=== PATIENT | male | born 1960 | race Caucasian/White ===

== ENCOUNTER 2019-02-07 18:06 | Inpatient (IN) ==
[2019-02-07 18:51] LABS: BASO# 0.07 X1000 (0.0-0.2); BASO% 0.8 % (0.0-0.8); EOS# 0.19 X1000 (0.0-0.7); EOS% 2.2 % (0.0-10.0); HEMATOCRIT 46.7 % (42.0-52.0); HEMOGLOBIN 15.2 g/dL (14.0-18.0); IMM GRAN# 0.02 X1000 (0.0-0.04); IMM GRAN% 0.2 % (0.0-0.5); LYMPH# 2.44 X1000 (1.2-3.4); LYMPH% 28.6 % (20.5-51.1); MCH 27.8 PG (27-31); MCHC 32.5 g/dL (33-37); MCV 85.5 FL (81-99); MONO# 0.82 X1000 (0.11-0.59); MONO% 9.6 % (1.7-9.3); MPV 9.4 FL (7.4-10.4); NEUT# 4.99 X1000 (1.4-6.5); NEUT% 58.6 % (42.2-75.2); PLT 248 X1000 (130-400); RBC 5.46 XMIL (4.7-6.1); RDW 15.7 % (11.5-14.5); WBC 8.53 X1000 (4.8-10.8)
--- NOTE | 2019-02-07 18:53 | Diag Imaging Result Doc PS360 ---
EXAM: CHEST-2 VIEWS INDICATION: SOB TECHNIQUE: 2 views COMPARISON: 06/28/2018 FINDINGS: There is a dense airspace consolidation at the right lung base indicating pneumonia. It appears to be mainly in the right middle lobe. The left lung is clear. There is suggestion of a small right pleural effusion. There is stable cardiomegaly. IMPRESSION: Dense airspace consolidation at the right lung base suggesting pneumonia. Electronically signed by Wesley Burgos 02/07/2019 6:50 PM
[2019-02-07 18:55] LABS: INR 1.45; PROTIME 17.9 Seconds (11.0-16.0)
[2019-02-07 18:56] LABS: PTT 33.1 Seconds (22.3-41.8)
[2019-02-07 19:08] LABS: AGAP 14; ALB/GLOB RATIO 1.4; ALBUMIN 3.8 g/dL (3.5-5.0); ALKALINE PHOSPHATASE 100 U/L (32-122); BUN 28 mg/dL (8-22); CALCIUM 8.4 mg/dL (8.8-10.2); CHLORIDE 100 mmol/L (98-107); COSMO 278; CREATININE 1.1 mg/dL (0.7-1.2); ESTIMATED GFR > 60; GLUCOSE 107 mg/dL (70-104); GOT 123 U/L (10-34); GPT 73 U/L (10-44); POTASSIUM 4.5 mmol/L (3.5-5.1); SODIUM 136 mmol/L (136-145); TCO2 22 mmol/L (25-35); TOTAL BILIRUBIN 1.91 mg/dL (0.20-1.00); TOTAL PROTEIN 6.5 g/dL (6.3-8.3)
[2019-02-07] MEDS ORDERED: ZITHROMAX 500 MG/NS 500 MG/250 ML IVPB IV ONE ×2 (19:57→20:21)
[2019-02-07] MEDS ORDERED: ZITHROMAX PO ONE (20:12)
--- NOTE | 2019-02-07 20:39 | PROVIDER DOCUMENTATION ---
This chart was entered by Lucrecia Burgos Scribe, acting as scribe for Risa Lee CRNP. HPI-Respiratory General - General Chief Complaint: Shortness of Breath Stated Complaint: CHF Time Seen by Provider: 02/07/19 18:15 Source: patient Allergies/Adverse Reactions: Patient Allergies Allergy/AdvReac Type Severity Reaction Status Date / Time No Known Allergies Allergy Verified 02/07/19 19:12 Home Medications: Home Medication List Medication Instructions Recorded Confirmed Last Taken Type Furosemide [Lasix] 40 mg PO BID #60 tab 10/07/17 02/07/19 Unknown Rx - History of Present Illness-Resp Nature of Presenting Problem: 58 yom presents to er w/cc sob x over 1 wk and getting worse. pt is having episodes of PND. pt sts SOB started due to a lac on left great toe and unable to afford to get peroxide for it. pt has bilat LE swelling that has become worse. pt denies cp, nvd, and fever. Onset/Duration: reports: other (over 1 wk ago) Timing: reports: still present Context: reports: other (lac on left great toe, unable to get peroxide for it) Cough Quality/Degree: reports: no cough Associated Symptoms: reports: shortness of breath, other (pnd and lac to left great toe). denies: chest pain/soreness Review of Systems - Adult - REVIEW OF SYSTEMS - ADULT Constitutional: reports: no symptoms reported. denies: fever, fatique Eyes: reports: no symptoms reported Ears, Nose, Mouth & Throat: reports: no symptoms reported Cardiovascular: reports: see HPI, PND. denies: chest pain, edema, palpitations Respiratory: reports: see HPI, shortness of breath. denies: cough, pleurisy, wheezing Gastrointestinal: reports: no symptoms reported. denies: diarrhea, nausea, vomiting Genitourinary: reports: no symptoms reported Musculoskeletal: reports: no symptoms reported Integumentary: reports: no symptoms reported Neurological: reports: no symptoms reported Psychiatric: reports: no symptoms reported Endocrine: reports: no symptoms reported Hematologic/Lymphatic: reports: no symptoms reported Allergic/Immunologic: reports: no symptoms reported All Other Systems: Reviewed and Negative Past History - Adult - PAST MEDICAL HISTORY-ADULT Review of Records: reports: Nursing Assessment Review, Medications Reviewed, Social history reviewed & non-contributory. Major Childhood Illnesses: reports: denies history Cardiovascular: reports: A-Fib, CHF, HTN Respiratory: reports: denies history Gastrointestinal: reports: denies history Obstetrical/Gynecological: reports: denies history Genitourinary: reports: denies history Musculoskeletal: reports: denies history Neurological: reports: denies history Endocrine/Immune: reports: denies history Other Conditions: reports: denies history - PRIOR SURGERIES/PROCEDURES Surgical/Procedure History: reports: none - IMMUNIZATION STATUS Childhood Immunizations: See Nurse Assessment Flu Vaccine: See Nurse Assessment - FAMILY HISTORY Family History: reviewed, not pertinent - SOCIAL HISTORY Smoking: other (former smoker) Substance Use: marijuana Physical Exam-General - PHYSICAL EXAM-ADULT Initial Vital Signs Reviewed: Yes - CONSTITUTIONAL General Appearance: alert, no apparent distress. negative: lethargic, slow to respond, obtunded - EYES Eyes: PERRL/EOMI, pink conjunctivae - HEAD, EARS, NOSE, MOUTH & THROAT HENMT: normocephalic/atraumatic, moist mucous membranes, normal ENT inspection - NECK Neck: non-tender, full range of motion, supple, normal inspection - RESPIRATORY Respiratory: chest non-tender, lungs clear, normal breath sounds, no pleuratic chest pain, no respiratory distress, no accessory muscle use. negative: accessory muscle use, crackles, rales, rhonchi, wheezing - CARDIOVASCULAR Cardiovascular: normal peripheral pulses, regular rate, rhythm - CHEST (BREASTS) Chest/Breast: other (pt has healing bruise on left chest). negative: nipple discharge, tenderness, mass/lump noted - GASTROINTESTINAL (ABDOMEN) Abdominal Exam: normal bowel sounds, non tender, soft - LYMPHATIC Lymphatic: no adenopathy - MUSCULOSKELETAL Back Exam: normal inspection, no CVA tenderness, no vertebral tenderness Extremity: normal range of motion, non-tender, no calf tenderness, normal capillary refill, pelvis stable, erythema (bilat LE), other (+1 edema bilat LE). negative: normal inspection, deformity, pulse deficit Peripheral Pulses: radial (R): 2+, radial (L): 2+ - SKIN Integumentary: normal color, normal turgor, warm/dry, laceration(s) (healing lac bottom of left great toe w/no purulent drainage). negative: abrasion(s), ecchymosis, rash - NEUROLOGIC Neurologic: grossly normal, no motor/sensory deficits - PSYCHIATRIC Psych/Mental Status: normal mood/affect, normal thought content, normal thought process, oriented x 3 Progress - PLAN OF CARE/RESULTS Progress/Plan/Lab Results: Vital Signs - 8 hr 02/07/19 18:09 02/07/19 20:21 Temperature 97.9 F Pulse Rate 82 85 Respiratory Rate 18 20 Blood Pressure 157/63 148/91 O2 Sat by Pulse Oximetry 95 98 Laboratory Results - last 24 hr 02/07/19 02/07/19 02/07/19 18:27 18:27 18:27 WBC 8.53 RBC 5.46 Hgb 15.2 Hct 46.7 MCV 85.5 MCH 27.8 MCHC 32.5 L RDW Std Deviation 15.7 H Plt Count 248 MPV 9.4 Immature Gran % (Auto) 0.2 Neut % (Auto) 58.6 Lymph % (Auto) 28.6 [place] % (Auto) 9.6 H Eos % (Auto) 2.2 Baso % (Auto) 0.8 Immature Gran # (Auto) 0.02 Neut # (Auto) 4.99 Lymph # (Auto) 2.44 [place] # (Auto) 0.82 H Eos # (Auto) 0.19 Baso # (Auto) 0.07 PT INR PTT (Actin FS) Sodium 136 Potassium 4.5 Chloride 100 Carbon Dioxide 22 L Anion Gap 14 BUN 28 H Creatinine 1.1 Estimated GFR/1.73 m2 > 60 BUN/Creatinine Ratio 25 Glucose 107 H Calculated Osmolality 278 Calcium 8.4 L Total Bilirubin 1.91 H AST 123 H ALT 73 H Alkaline Phosphatase 100 Troponin T [id number] Pept 1505 H Total Protein 6.5 Albumin 3.8 Globulin 2.7 Albumin/Globulin Ratio 1.4 02/07/19 02/07/19 18:27 18:27 WBC RBC Hgb Hct MCV MCH MCHC RDW Std Deviation Plt Count MPV Immature Gran % (Auto) Neut % (Auto) Lymph % (Auto) [place] % (Auto) Eos % (Auto) Baso % (Auto) Immature Gran # (Auto) Neut # (Auto) Lymph # (Auto) [place] # (Auto) Eos # (Auto) Baso # (Auto) PT 17.9 H INR 1.45 PTT (Actin FS) 33.1 Sodium Potassium Chloride Carbon Dioxide Anion Gap BUN Creatinine Estimated GFR/1.73 m2 BUN/Creatinine Ratio Glucose Calculated Osmolality Calcium Total Bilirubin AST ALT Alkaline Phosphatase Troponin T 0.021 Yzo-[id number] Pept Total Protein Albumin Globulin Albumin/Globulin Ratio Orders Category Date Time Status cxr [CHEST-2 VIEWS] [RAD] Stat Exams 02/07/19 18:16 Completed CBC WITH DIFF [HEME] Stat Lab 02/07/19 18:27 Completed COMPREHENSIVE METABOLIC PANEL [CHEM] Stat Lab 02/07/19 18:27 Completed PRO B-NATRIURETIC PEPTIDE Stat Lab 02/07/19 18:27 Completed PROTIME WITH INR [COAG] Stat Lab 02/07/19 18:27 Completed PTT [COAG] Stat Lab 02/07/19 18:27 Completed TROPONIN T Stat Lab 02/07/19 18:27 Completed TROPONIN T Stat Lab 02/07/19 20:30 Received Azithromycin 500 mg/Ns [Zithromax 500 mg/Ns] Med 02/07/19 19:57 Discontinued 500 mg in 250 ml IV NOW Azithromycin 500 mg/Ns [Zithromax 500 mg/Ns] Med 02/07/19 20:21 Active 500 mg in 250 ml IV NOW Azithromycin [Zithromax] Med 02/07/19 20:12 Discontinued 500 mg PO NOW ONE EKG [EKG] Stat Ther 02/07/19 18:16 Ordered EKG [EKG] Stat Ther 02/07/19 19:57 Ordered Result Diagrams: 02/07/19 18:27 02/07/19 18:27 - EKG 1 Time of EKG reading by physician:: 18:21 EKG Read and Signed by:: Sukhdeep Jones EKG Interpretation (*Must complete 3 of following elements*): Abnormal Rate: 84 (nonspecific intraventricular block ) Rhythm: Afib [place]: normal QRS: normal ST Wave: normal Prior EKG Comparison: unchanged from prior (uncahnged from 06-03-18) Comments: lateral infarct, age undetermined - XRAY 1 XRAY Study: Chest Impression: See EMR Report (EXAM: CHEST-2 VIEWS INDICATION: SOB TECHNIQUE: 2 views COMPARISON: 06/28/2018 FINDINGS: There is a dense airspace consolidation at the right lung base indicating pneumonia. It appears to be mainly in the right middle lobe. The left lung is clear. There is suggestion of a small right pleural effusion. There is stable cardiomegaly. IMPRESSION: Dense airspace consolidation at the right lung base suggesting pneumonia. Electronically signed by Wesley Burgos 02/07/2019 6:50 PM 02/07/190 Interpreting Physician: Wesley Burgos MD Dictated Date/Time: 02/07/191847 cc: Risa Lee; None,PCP) - CONSULTS/PCP/HOSPITALIST Notification #1 *Consult/PCP/Hospitalist*: DR. TOVAR Time Discussed: 20:38 Consult Disposition: Admit Departure - Departure Date of Disposition Decision: 02/07/19 Time of Disposition Decision: 20:38 DIAGNOSIS: Pneumonia Disposition: ADMITTED INPATIENT 09 Certified Medical Emergency: Emergent Condition: Stable Referrals and Follow-Ups: None,PCP [Primary Care Provider] - - Critical Care Note This patient required my direct & personal management of CC.: No Attestation - Physician/ JOHN Attestation Patient care was provided by Advanced Practice Provider:: Yes Advanced Practice Provider:: Risa Lee Advanced Practice Provider documentation review:: The Mid-level provider documentation, treatment plan and medical decision making was reviewed by the physician who agrees with all treatment and medical decision making by the MLP. The physician spent face to face time with patient:: No Advanced Practice Provider documentation review:: Supervising physician onsite and consulted in the evaluation and care of this patient. The physician did not have a face to face encounter with the patient. This chart was documented by the indicated scribe, (Lucrecia Burgos Scribe) and accurately reflects the services I performed and decisions made by me, Risa Lee CRNP, as attested by the provider's signature.
--- NOTE | 2019-02-07 20:49 | EKG Report ---
Test Performed on : 02/07/2019 6:21:53 PM Test Reason : SOB Blood Pressure : / mmHG Vent. Rate : 084 BPM Atrial Rate : 092 BPM P-R Int : 000 ms QRS Dur : 168 ms QT Int : 412 ms P-R-T Axes : 000 258 069 degrees QTc Int : 486 ms Suspect arm lead reversal, interpretation assumes no reversal Atrial fibrillation. Nonspecific intraventricular block Lateral infarct , age undetermined Abnormal ECG When compared with ECG of 28-JUN-2018 15:04, Nonspecific intraventricular block has replaced Left bundle branch block Lateral infarct is now present Unconfirmed Result
--- NOTE | 2019-02-07 20:49 | EKG Report ---
Test Performed on : 02/07/2019 8:05:03 PM Test Reason : CP Blood Pressure : / mmHG Vent. Rate : 074 BPM Atrial Rate : 174 BPM P-R Int : 000 ms QRS Dur : 172 ms QT Int : 432 ms P-R-T Axes : 000 234 069 degrees QTc Int : 479 ms Suspect arm lead reversal, interpretation assumes no reversal Atrial fibrillation. Nonspecific intraventricular block Lateral infarct (cited on or before 07-FEB-2019) Abnormal ECG When compared with ECG of 07-FEB-2019 18:21, (Unconfirmed) No significant change was found Unconfirmed Result
[2019-02-07] MEDS ORDERED: LASIX IV ONE (21:24)
[2019-02-07] MEDS ORDERED: TYLENOL PO PRN (21:41)
[2019-02-07] MEDS ORDERED: AUGMENTIN PO SCH (21:41)
[2019-02-07] MEDS ORDERED: LOVENOX SUBQ SCH (22:00)
--- NOTE | 2019-02-07 22:05 | HISTORY AND PHYSICAL ---
PRIMARY CARE PHYSICIAN: None. REASON FOR ADMISSION: A one-week history of worsening shortness of breath, two-day history of chest pain, worsening cough. HISTORY OF PRESENT ILLNESS: Mr. Fady Ames is a 58-year-old man with past medical history of chronic systolic heart failure secondary to dilated cardiomyopathy, atrial fibrillation, hypertension, morbid obesity. He reports that since April of this year, he has not seen any primary care physician and essentially has fallen through the cracks. The only medication he takes periodically is Lasix 40 mg, which is an old prescription. He reports for the last one week, he has been having progressive shortness of breath with PND, orthopnea. He reports that he engaged in some heavy duty exertion, i.e., unloading scrap from his pickup truck two days ago, and since then, his dyspnea has worsened. He admits to having a cough productive of yellowish sputum, but no fever or chills. Denies any lower extremity swelling of note, but does state that he has been having easy satiety for the last one week and bloating. Over the last couple of days, he has had transient chest pain in the precordial area with some palpitations, but these have not occurred over the last 24 hours. He does admit to having chronic lower extremity redness, but this has not progressed. No increased pain in his lower extremities. REVIEW OF SYSTEMS: Notable for constipation. No other GI or complaints. No focal neurological complaints. No lightheadedness or presyncopal spells. No new-onset rash. Does state that the redness in his legs started today, noticed on the left leg and slowly ascending to his knee. ALLERGIES: No known allergies. MEDICATIONS: Lasix 40 mg b.i.d. SURGICAL HISTORY: None. SOCIAL HISTORY: Lives alone. Does not smoke, drink, or use drugs. FAMILY HISTORY: Negative for any heart disease or diabetes. LABORATORY AND DIAGNOSTIC DATA: Notable for a chest film showing right lower lobe infiltrate. White count 8000, hemoglobin and hematocrit 15 and 46, platelets 248,000. BUN is 18, creatinine 1.1, glucose 107, calcium 8.4. Total bilirubin is 1.9, AST 123, ALT 73. Troponin is essentially negative, 0.021 and 0.022. ProBNP was 1500. PTT 18, INR 1.4. EKG showed irregular, atrial fibrillation, with what appears to be paced rhythm versus left bundle-branch block, left axis deviation, and Q-waves in the anterior leads. PHYSICAL EXAMINATION: VITAL SIGNS: Blood pressure 157/60, heart rate 82, respirations 18, temperature is 97.9 degrees. He is 95% on room air. GENERAL: He is an obese, middle-aged, man, not in acute distress. AAO x3, with normal mood and affect. HEAD: Normocephalic and atraumatic. EYES: PERRL, EOMI. He is anicteric and not pale. ENT: Grossly normal. No central cyanosis. NECK: Supple with possible JVD and positive hepatojugular reflux. No bruit. No thyromegaly. CHEST: Decreased entry in the bases. A few scattered wheezes. CARDIOVASCULAR: First and second sounds heard. No gallops, murmurs, rubs. Rhythm is irregular. ABDOMEN: Protuberant, soft, nontender. No organomegaly. Bowel sounds are normal. EXTREMITIES: Patient has lower extremity erythema, but on the left leg, the erythema extends all the way to the medial aspect just below the knee. On the right lower extremity, mid hernandez appears to be slightly warm. No induration. No fluctuance. Distal pulses are full, symmetrical, and irregular. No clubbing or peripheral cyanosis. NEUROLOGIC: No focal deficits. SKIN: See above. Grossly unremarkable. MUSCULOSKELETAL: Grossly normal. ASSESSMENT: 1. Right lower lobe pneumonia. 2. Mild acute on chronic systolic heart failure. 3. Hypertensive heart disease. 4. Chronic atrial fibrillation. PLAN: We will get the patient treated for pneumonia, i.e., community-acquired, and a possibility of aspiration pneumonia. More importantly, this patient has fallen through the cracks, and will need to establish a primary care provider and asset manager prior to discharge. We will resume Lasix. Start patient on beta blockers and JONATHAN inhibitors. Consult Cardiology to see patient. Repeat chest film in two days to document improvement in radiographic picture from a cardiac standpoint. I expect pneumonia findings to probably be worse as this tends to lag behind the chest film. We will defer to primary team and Cardiology regarding further treatment to include Eliquis or not, which if patient qualifies for. The patient also has evidence of some degree of mild cellulitis and antibiotics, i.e., doxycycline and Augmentin which I prescribed for pneumonia, should be able to cover this, too. cc: Terrie Villarreal MD
[2019-02-07] MEDS: LASIX PO SCH (22:35)
[2019-02-07] MEDS: COREG PO SCH (22:36)
[2019-02-07] MEDS: DOXYCYCLINE 100 MG in NS 250 ML IV SCH (23:00)
[2019-02-08 05:40] LABS: ALLEN TEST YES; BE -0.2 mmoll (-3.0-3.0); BLOOD TYPE ARTERIAL; HCO3-(ACT) 24.6 mmoll (20.0-26.0); METHB 0.5 % (0.0-1.5); O2(CT) 20.8 mL/dL (15.0-23.0); O2HB 93.6 % (95.0-99.0); PCO2(98.6) 41 mmHg (35-45); PO2(98.6) 73 mmHg (60-100); SAMPLE BLOOD; SAO2 96.3 % (95.0-100.0); THB 15.8 g/dL (11.5-17.4); pH(98.6) 7.39 (7.35-7.45)
[2019-02-08 05:41] LABS: MODALITY ROOM AIR
[2019-02-08] MEDS: DUONEB (A & A) INH SCH ×4 (05:41→22:55)
[2019-02-08 06:42] LABS: BASO# 0.06 X1000 (0.0-0.2); BASO% 0.8 % (0.0-0.8); EOS# 0.14 X1000 (0.0-0.7); EOS% 1.8 % (0.0-10.0); HEMATOCRIT 48.3 % (42.0-52.0); HEMOGLOBIN 15.4 g/dL (14.0-18.0); IMM GRAN# 0.02 X1000 (0.0-0.04); IMM GRAN% 0.3 % (0.0-0.5); LYMPH# 2.08 X1000 (1.2-3.4); MCH 27.6 PG (27-31); MCHC 31.9 g/dL (33-37); MCV 86.6 FL (81-99); MONO# 0.67 X1000 (0.11-0.59); MONO% 8.4 % (1.7-9.3); MPV 9.4 FL (7.4-10.4); NEUT# 5.03 X1000 (1.4-6.5); NEUT% 62.7 % (42.2-75.2); PLT 248 X1000 (130-400); RBC 5.58 XMIL (4.7-6.1); RDW 15.9 % (11.5-14.5)
[2019-02-08 06:51] LABS: UR AMPHETAMINES QUAL NONE DETECTED (NONE DETECT); UR BARBITUATES QUAL NONE DETECTED (NONE DETECT); UR BENZODIAZEPIN QUAL NONE DETECTED (NONE DETECT); UR CANNABINOIDS QUAL PRESUMPTIVE POSITIVE (NONE DETECT); UR COCAINE QUAL NONE DETECTED (NONE DETECT); UR METHADONE QUAL NONE DETECTED (NONE DETECT); UR OPIATES QUAL NONE DETECTED (NONE DETECT); UR OXYCODONE QUAL NONE DETECTED (NONE DETECT); UR PCP QUAL NONE DETECTED (NONE DETECT)
[2019-02-08 07:10] LABS: CALCIUM 8.6 mg/dL (8.8-10.2); CREATININE 1.3 mg/dL (0.7-1.2); POTASSIUM 4.7 mmol/L (3.5-5.1)
[2019-02-08] MEDS ORDERED: PRINIVIL PO SCH (09:00)
[2019-02-08] MEDS: DOXYCYCLINE 100 MG in NS 250 ML IV SCH ×2 (09:39→22:00)
[2019-02-08] MEDS: LASIX PO SCH (09:43)
[2019-02-08] MEDS: COREG PO SCH ×2 (09:43→21:00)
[2019-02-08] MEDS: MAXIPIME 2 GM in NS 100 ML IV SCH ×3 (11:07→23:29)
--- NOTE | 2019-02-08 19:46 | CARDIOLOGY CONSULTATION ---
DATE: 02/08/2019 CHIEF COMPLAINT ON PRESENTATION: Shortness of breath. HISTORY OF PRESENT ILLNESS: Mr. Ames is a 58-year-old male with a history of a nonischemic cardiomyopathy. He presented for evaluation of shortness of breath. The patient apparently for 1 to 2 weeks has been extremely short of breath. Yesterday, he said he felt like he was "going to ." He was unable to really clarify what that meant. It did not seem like he had any overt pain complaints, as he did not complain of this, but had some rare coughing episodes. He is not aware of any fevers or chills. He had significant exertional shortness of breath. He has not been compliant with his medications, although he continues to smoke marijuana. PAST MEDICAL HISTORY: Significant for: 1. A nonischemic cardiomyopathy with previous cardiac catheterization on May 25 that showed normal coronaries. 2. Hypertension. SOCIAL HISTORY: He lives alone. He uses marijuana, per his UDS. He denies any tobacco use or alcohol. FAMILY HISTORY: Significant for hypertension. REVIEW OF SYSTEMS: A 10 system review of systems is negative except for those things mentioned in the HPI. PHYSICAL EXAMINATION: He is afebrile, his heart rate is 78, his blood pressure is 151/102, his blood pressure on presentation was 157/63. His intakes and outputs are limited. Generally, he is in no acute distress.HEENT: Oropharynx is moist. Poor dentition. Eye examination shows pink conjunctivae, white sclerae. Neck examination shows no obvious thyromegaly or thyroid tenderness. Cardiovascularly, he sounds to be in a regular rate and rhythm. He has no obvious murmurs. He has no S3. He has no lower extremity edema. His chest exam has reduced breath sounds with mild rales in the right lower base. Otherwise, no increased work of breathing. No other abnormalities. His abdomen is protuberant, somewhat firm, nontender. Bowel sounds are intact. His extremities are warm, well perfused. He has trace bilateral lower extremity edema. Skin: He has some thickening of the scan in his bilateral lower extremities. He has some lacerations on both feet. Neurologic: He is moving all extremities well. He has no lateralizing deficits. PERTINENT DATA: He has dense consolidation in the right lung base, suggesting pneumonia. His EKG on presentation shows what appears to be atrial fibrillation with a nonspecific intraventricular conduction delay. His subsequent EKG on the that shows again what appears to be atrial fibrillation with a nonspecific intraventricular conduction delay. His previous EKG in June demonstrated atrial fibrillation with what appeared at that time to be a left bundle branch block. May 2018 he appeared to be in atrial fibrillation as well with a left bundle branch block, and again in September 2017 he appeared to be in atrial fibrillation. Lab data: White count 8, hematocrit 48, platelet count 248,000. His sodium is 143, potassium 4.7, his BUN is 28, creatinine 1.3 which is up from 1.1 yesterday. His proBNP yesterday was 1505. TSH 6.73, it was noted to be 6.65 in May. His cardiac enzymes are negative. His UDS was positive for marijuana. He had hepatitis C testing demonstrating positive serologies in September. He had a reactive hepatitis C antibody with nonreactive hepatitis B titers and hepatitis A titers. ASSESSMENT: Mr. Ames is a 58-year-old gentleman, who presents with shortness of breath and found to have a pneumonia. PLAN: He appears to be in permanent atrial fibrillation by history as well as by EKG today. We will place him on treatment dose of Lovenox. He is on antibiotics. I have changed his Lasix over to once daily. He may be a little bit dry, based on his arise in his BUN and creatinine. I believe he is perfusing. I have reduced his Coreg down to 3.125 b.i.d. and switched him over to losartan. I have impressed to him the importance of taking his medications and the fact that adherence to his medications if his heart function does not improve he may be a candidate for a CARDIOLOGY SPECIALIST device, which could have a significant impact in improving his heart function. We will continue to follow along with the patient. cc: Lowell Amaya MD
[2019-02-08] MEDS ORDERED: TYLENOL PO PRN (19:56)
[2019-02-08] MEDS ORDERED: ZOFRAN IV PRN (19:57)
[2019-02-08] MEDS: LOVENOX SUBQ SCH (21:00)
--- NOTE | 2019-02-08 22:03 | PROGRESS NOTE ---
DATE: 02/08/2019 SUBJECTIVE: The patient is sitting at the edge of the bed. He states that he does not feel very good at this time. He does complain of intermittent shortness of breath. He reports that he ran out of his medications six months ago. OBJECTIVE: Vital Signs: Temperature 97.5 degrees, blood pressure 122/98, heart rate 62, respirations 16, O2 saturation 100% on room air. General: This is a morbidly obese male, sitting at the edge of the bed in no acute distress. Heart: S1, S2 normal. Regular rate and rhythm. Lungs: Coarse breath sounds bilaterally. Abdomen: Positive bowel sounds. Soft, obese, nontender, nondistended. Extremities: Edema 1+ bilaterally. Neurologic: The patient is alert and oriented x3. LABORATORY DATA: Hemoglobin 15, hematocrit 48. Sodium 143, potassium 4.7, chloride 102, CO2 of 28, BUN 28, creatinine 1.3, glucose 81. TSH 6.73. ASSESSMENT AND PLAN: 1. Acute on chronic systolic congestive heart failure exacerbation. Continue on the current cardiac medications as ordered by the burnisher. 2. Pneumonia. Continue on broad-spectrum antibiotics as well as bronchodilator therapy. 3. Hepatitis C. Aware. The patient reports that he has never been treated for this. 4. Morbid obesity. Aware. 5. Hypothyroidism. We will start the patient on Synthroid. 6. Hypertension. Continue on the current antihypertensive regimen. 7. Dilated cardiomyopathy. Aware. 8.Atrial fibrillation. Management as per cardiology. 9. Deep vein thrombosis prophylaxis. The patient is currently on full-dose Lovenox. cc: Floridalma Campbell MD [facility]
[2019-02-08] MEDS ORDERED: NS 500 ML ONE (23:36)
[2019-02-09] MEDS: DUONEB (A & A) INH SCH ×4 (03:36→23:15)
[2019-02-09] MEDS: SYNTHROID PO SCH (06:08)
[2019-02-09 06:47] LABS: BASO# 0.04 X1000 (0.0-0.2); BASO% 0.6 % (0.0-0.8); EOS# 0.23 X1000 (0.0-0.7); EOS% 3.4 % (0.0-10.0); HEMOGLOBIN 14.8 g/dL (14.0-18.0); LYMPH# 2.13 X1000 (1.2-3.4); LYMPH% 31.2 % (20.5-51.1); MCH 27.1 PG (27-31); MCHC 31.5 g/dL (33-37); MCV 86.1 FL (81-99); MONO# 0.58 X1000 (0.11-0.59); MONO% 8.5 % (1.7-9.3); MPV 9.7 FL (7.4-10.4); NEUT# 3.85 X1000 (1.4-6.5); NEUT% 56.3 % (42.2-75.2); PLT 233 X1000 (130-400); RBC 5.46 XMIL (4.7-6.1); RDW 15.7 % (11.5-14.5); WBC 6.83 X1000 (4.8-10.8)
[2019-02-09 06:52] LABS: HEMOGLOBIN A1C 5.9 % (4.8-6.0)
[2019-02-09 07:17] LABS: CALCIUM 8.5 mg/dL (8.8-10.2); CREATININE 1.3 mg/dL (0.7-1.2); POTASSIUM 4.5 mmol/L (3.5-5.1)
[2019-02-09 07:29] LABS: ALB/GLOB RATIO 1.5; ALBUMIN 3.7 g/dL (3.5-5.0); MAGNESIUM 1.8 mg/dL (1.5-2.7); TOTAL BILIRUBIN 2.18 mg/dL (0.20-1.00); TOTAL PROTEIN 6.2 g/dL (6.3-8.3)
--- NOTE | 2019-02-09 08:31 | ECHO REPORT ---
ORDER DATE: 02/08/2019 INTERPRETING PHYSICIAN: Odilon Posadas MD. REQUESTING PHYSICIAN: Hospitalist service. INDICATIONS: Chest pain, atrial fibrillation, and hypertension. M-MODE MEASUREMENTS: Left ventricle end diastole: 6.5 cm. Left ventricle end systole: 5.6 cm. Posterior wall: 1.4 cm. Interventricular septum: 1.4 cm. Left atrium: 5.8 cm. Aortic diameter: 3.2 cm. SUMMARY OF 2-DIMENSIONAL IMAGING: The study is very difficult and the distillation operator added Optison hoping that it would improve the visualization of the chambers. 1. Left ventricular chamber is markedly dilated. It shows severely impaired systolic function with ejection fraction of 15% to 20% at best. There is mild degree of concentric left ventricular hypertrophy. There is a small pericardial effusion, concentric, without tamponade. All of the chambers are dilated. This is a dilated cardiomyopathy. 2. Tricuspid valve shows moderately severe degree of regurgitation. The inferior vena cava is dilated. 3. The pulmonary systolic pressure is estimated at 54 mmHg. The pulmonic valve is unremarkable. 4. The aortic valve looks grossly normal. Color flow mapping unremarkable. 5. Mitral valve shows a mild degree of regurgitation. 6. Pulsed wave Doppler of mitral inflow shows what appears to be a single filling wave. The patient is probably in atrial fibrillation. 7. There is no mass and no thrombus. 8. The inferior vena cava is dilated with minimal respiratory evaluation. SUMMARY: This study shows four chamber dilatation, especially the atria and the left ventricle. There is severely impaired systolic function with ejection fraction of 15% to 20%. There is a small concentric pericardial effusion without tamponade. There is pulmonary hypertension. Diastolic dysfunction is probably very likely. Clinical correlation is recommended. cc: MD Lowell Springer MD
[2019-02-09] MEDS ORDERED: LASIX PO SCH (09:00)
[2019-02-09] MEDS: DOXYCYCLINE 100 MG in NS 250 ML IV SCH ×2 (09:16→22:30)
[2019-02-09] MEDS: COREG PO SCH ×2 (09:16→22:30)
[2019-02-09] MEDS: LOVENOX SUBQ SCH ×2 (09:16→22:29)
[2019-02-09] MEDS: COZAAR PO SCH (09:18)
[2019-02-09] MEDS: MAXIPIME 2 GM in NS 100 ML IV SCH (12:10)
[2019-02-09] MEDS ORDERED: LASIX IV ONE (15:15)
--- NOTE | 2019-02-09 15:18 | PROGRESS NOTE ---
DATE: 02/09/2019 SUBJECTIVE: The patient states that he feels a lot better today. He states that he slept well last night. OBJECTIVE: Vital Signs: Temperature 98.4 degrees, blood pressure 110/89, heart rate 95, respirations 18, O2 saturation is 100% on room air. General: This is a morbidly obese male lying in bed, in no acute distress. Heart: S1, S2 normal. Lungs: Equal air entry bilaterally. No wheezing. No rales. Abdomen: Positive bowel sounds. Soft, obese. Extremities: No edema. The patient does have an ulceration at the base of his left great toe. There is no discharge coming from it at this time. Neurologic: The patient is alert and oriented x4. Labs: Hemoglobin 14, hematocrit 47, platelets 233,000. Sodium 135, potassium 4.5, chloride 98, CO2 of 26, BUN 29, creatinine 1.3, glucose 123. Total bilirubin 2.1, AST 109, ALT 68, alkaline phosphatase 85. ASSESSMENT AND PLAN: 1. Acute on chronic systolic congestive heart failure exacerbation. Continue on the current treatment regimen as directed by the yarn man. 2. Pneumonia. Continue with antibiotic therapy and bronchodilator therapy. 3. Hepatitis C. Aware. The patient will be referred to gastroenterology as outpatient to discuss treatment. 4. Morbid obesity. Aware. 5. Hypothyroidism. Continue on Synthroid. 6. Dilated cardiomyopathy. Aware. 7. Hypertension. Continue on the current antihypertensive regimen. 8. Deep vein thrombosis prophylaxis. The patient is on full-dose Lovenox. 9. Atrial fibrillation. Continue with the current regimen as directed by the yarn man. cc: Floridalma Campbell MD
--- NOTE | 2019-02-09 20:06 | CARDIOLOGY PROGRESS NOTE ---
DATE: 02/09/2019 SUBJECTIVE: Mr. Ames reports his breathing is doing okay. He continues to have some trouble with edema. PHYSICAL EXAMINATION: Vital signs: He is afebrile, heart rate 95, blood pressure 110/89. Inputs and outputs are somewhat difficult to track. He has limited data. It seems relatively flat though. All voids appear to be measured. General: He is in no acute distress. Cardiovascular: He sounds to be in an irregularly irregular rhythm, which is consistent with his chronic atrial fibrillation. He has 1+ bilateral lower extremity edema. His JVP does appear to be elevated. Chest: Reduced breath sounds on the right base with mild rales. He has no increased work of breathing. Abdomen: Soft, nontender. PERTINENT DATA: His sodium is 135, potassium 4.5, BUN 29, creatinine is 1.3. His proBNP is 1105. His white count is 6.8. ASSESSMENT: Mr. Ames is a 58-year-old gentleman who presented with a right-sided pneumonia. He appears to be in mild heart failure. PLAN: Patient was re-initiated on a beta-alon and angiotensin receptor alon. I will give him a dose of intravenous Lasix today and change him to his home dose of 80 mg of Lasix. He reports he was taking 80 mg once a day at home. We will recheck laboratories in the morning. cc: Lowell Amaya MD
[2019-02-10] MEDS: MAXIPIME 2 GM in NS 100 ML IV SCH ×2 (01:23→12:36)
[2019-02-10] MEDS: DUONEB (A & A) INH SCH ×4 (04:55→22:18)
[2019-02-10] MEDS: SYNTHROID PO SCH (06:17)
[2019-02-10 07:24] LABS: BASO# 0.06 X1000 (0.0-0.2); BASO% 0.8 % (0.0-0.8); EOS# 0.28 X1000 (0.0-0.7); EOS% 3.9 % (0.0-10.0); HEMATOCRIT 46.4 % (42.0-52.0); HEMOGLOBIN 14.6 g/dL (14.0-18.0); LYMPH# 2.07 X1000 (1.2-3.4); MCH 27.3 PG (27-31); MCHC 31.5 g/dL (33-37); MCV 86.7 FL (81-99); MONO# 0.65 X1000 (0.11-0.59); MONO% 9.1 % (1.7-9.3); MPV 9.5 FL (7.4-10.4); NEUT# 4.09 X1000 (1.4-6.5); NEUT% 57.2 % (42.2-75.2); PLT 233 X1000 (130-400); RBC 5.35 XMIL (4.7-6.1); RDW 15.8 % (11.5-14.5); WBC 7.15 X1000 (4.8-10.8)
[2019-02-10 07:52] LABS: ALB/GLOB RATIO 1.4; ALBUMIN 3.7 g/dL (3.5-5.0); DIRECT BILIRUBIN 0.8 mg/dL (0.00-0.20); TOTAL BILIRUBIN 1.74 mg/dL (0.20-1.00); TOTAL PROTEIN 6.4 g/dL (6.3-8.3)
[2019-02-10 07:54] LABS: CALCIUM 8.3 mg/dL (8.8-10.2); CREATININE 1.4 mg/dL (0.7-1.2); POTASSIUM 3.9 mmol/L (3.5-5.1)
--- NOTE | 2019-02-10 10:00 | Diag Imaging Result Doc PS360 ---
CHEST-2 VIEWS - 02/10/2019 INDICATION: Pneumonia COMPARISON: 02/07/2019 FINDINGS: Stable severe cardiomegaly. Stable pulmonary vascular congestion. Stable dense infiltrate at the right lung base. There is right hemidiaphragm elevation versus a small right pleural effusion. IMPRESSION: No change from prior. Electronically signed by Nik Slater 02/10/2019 9:58 AM
[2019-02-10] MEDS: DOXYCYCLINE 100 MG in NS 250 ML IV SCH ×2 (10:47→21:27)
[2019-02-10] MEDS: COREG PO SCH ×2 (10:48→21:27)
[2019-02-10] MEDS: COZAAR PO SCH (10:48)
[2019-02-10] MEDS: LOVENOX SUBQ SCH ×2 (10:48→21:27)
[2019-02-10] MEDS: LASIX PO SCH (10:48)
--- NOTE | 2019-02-10 19:02 | PROGRESS NOTE ---
DATE: 02/10/2019 SUBJECTIVE: The patient states that he feels okay today. He states that he slept well. He still complains of some pain in his left leg. OBJECTIVE: Vital Signs: Temperature 97.5 degrees, blood pressure 135/103, heart rate 83, respirations 20, O2 saturations 100% on room air. General: This is a morbidly obese male sitting at the edge of the bed, in no acute distress. Heart: S1, S2 normal. Regular rate and rhythm. Lungs: Diminished breath sounds at the bases. No wheezing. No rales. Abdomen: Positive bowel sounds. Soft, nontender, nondistended. Extremities: The patient has erythema involving both lower extremities. He also has an ulceration on the base of his left great toe. Neurologic: The patient is alert and oriented x4. LABORATORY DATA: White blood cell count 7.1, hemoglobin 14, hematocrit 46, platelets 233,000. Sodium 142, potassium 3.9, chloride 102, CO2 is 28, BUN 27, creatinine 1.4, glucose 84, AST 94, ALT 64, alkaline phosphatase 84, total bilirubin 1.7. ASSESSMENT AND PLAN: 1. [id number] systolic congestive heart failure exacerbation. Continue on the current treatment regimen as directed by the barrel polisher. 2. Pneumonia. Continue with antibiotic therapy. We will also consult with Infectious Disease for further recommendations. 3. Hepatitis C. Aware. We will refer the patient to be seen by Gastroenterology as outpatient. 4. Bilateral lower extremity cellulitis. Continue with antibiotic therapy. 5. Hypothyroidism. Continue on Synthroid. 6. Morbid obesity. Aware. 7. Dilated cardiomyopathy. Aware. 8. Uncontrolled hypertension. We will increase the Coreg dosage. 9. Atrial fibrillation. The patient is on full-dose Lovenox and Coreg. cc: Floridalma Campbell MD
[2019-02-11] MEDS: MAXIPIME 2 GM in NS 100 ML IV SCH ×2 (00:06→14:27)
[2019-02-11] MEDS: DUONEB (A & A) INH SCH ×4 (03:36→19:14)
[2019-02-11] MEDS: SYNTHROID PO SCH (06:06)
[2019-02-11 06:55] LABS: HEMATOCRIT 47.1 % (42.0-52.0); HEMOGLOBIN 15.2 g/dL (14.0-18.0); MCH 28.3 PG (27-31); MCHC 32.3 g/dL (33-37); MCV 87.5 FL (81-99); MPV 9.6 FL (7.4-10.4); RBC 5.38 XMIL (4.7-6.1); RDW 16.1 % (11.5-14.5); WBC 7.14 X1000 (4.8-10.8)
[2019-02-11 07:18] LABS: CALCIUM 8.4 mg/dL (8.8-10.2); CREATININE 1.3 mg/dL (0.7-1.2); POTASSIUM 3.8 mmol/L (3.5-5.1)
[2019-02-11] MEDS: LASIX PO SCH (09:18)
[2019-02-11] MEDS: LOVENOX SUBQ SCH ×4 (09:18→22:58)
[2019-02-11] MEDS: COREG PO SCH ×2 (09:18→22:57)
[2019-02-11] MEDS: COZAAR PO SCH (09:18)
[2019-02-11] MEDS: DOXYCYCLINE 100 MG in NS 250 ML IV SCH (11:58)
[2019-02-11] MEDS ORDERED: ROCEPHIN 2 GM in NS 50 ML IV SCH (17:00)
--- NOTE | 2019-02-11 17:46 | INFECTIOUS DISEASE CONSULT REP ---
DATE: 02/11/2019 CONCLUSION: Patient is admitted the hospital with pneumonia and bilateral leg cellulitis. RECOMMENDATIONS: I have switched the patient's antibiotics to a combination of Rocephin and azithromycin. I have ordered that the foot of the patient's bed should remain elevated continuously by using manual Gatch. Also, I have ordered for the patient to elevate his legs as long as possible. I stressed to the patient also the importance of losing weight which would benefit his leg cellulitis from recurring and also would be good for his congestive heart failure. DISCUSSION: The patient said he felt dyspneic and cold. He had noticed that both his legs were erythematous and swollen. This started approximately 10 days ago. The patient's laboratory studies thus far show a CBC with a white count of 7160, hemoglobin 15.2, and platelet count 202,000. Creatinine is 1.3. GFR is 57. Chest x-ray shows cardiomegaly, pulmonary vascular congestion, and right lower lobe infiltrate. The patient's drug screen is positive for cannabinoids. PAST MEDICAL HISTORY/REVIEW OF SYSTEMS: Eyes and ears: Patient has decreased hearing and vision. Neck: No stiffness. Respiratory: See present illness. GI: No nausea, vomiting, or diarrhea. : No dysuria or flank pain. Bones, joints, muscles: No swollen joints. The patient does complain of having leg pain with his cellulitis. Neurologic: No seizures. No loss of motor or sensory function. PREVIOUS HOSPITALIZATIONS AND OPERATIONS: He has been admitted before for atrial fibrillation and congestive heart failure. MEDICAL DISEASES: Positive for atrial fibrillation, obesity, congestive heart failure and hypothyroidism. INFECTIOUS DISEASE HISTORY: Positive for UTI. Negative for pneumonia. FAMILY HISTORY: Positive for alcoholism. Negative for heart attack or stroke. SOCIAL HISTORY: [place] He is single. 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 He does not smoke cigarettes or drink alcoholic beverages but he does occasionally use marijuana. MEDICATIONS: Taken at home. The only medicine the patient is on is Lasix. PHYSICAL EXAMINATION: Vital Signs: Temperature is 98 degrees, pulse 69, respirations 18, blood pressure 131/105. The patient weighs 256 pounds. General: This is an obese, middle-aged male. He is in no acute distress. Head/eyes/ears/nose/throat: He can hear my spoken words and see near objects. I did not notice any white patches in his mouth. Neck: No meningismus. Lungs: Clear to auscultation. Cardiovascular: Heart rate is irregular. Abdomen: Soft and nontender. Extremities: Both legs are erythematous and edematous. I did not see any evidence of tinea pedis. Neurologic: The patient is awake. He can move his extremities. There is no tremor. His memory as regarding his medical history appeared to be intact. cc: Maik Fuentes MD MTDD
[2019-02-11] MEDS: ZITHROMAX PO SCH (18:12)
--- NOTE | 2019-02-11 19:57 | PROGRESS NOTE ---
DATE: 02/11/2019 SUBJECTIVE: The patient is resting comfortably in bed. He states that he feels okay today. OBJECTIVE: Vital Signs: Temperature 98.9 degrees, blood pressure 154/109, heart rate 94, respirations 22, O2 saturation 97% on room air. General: This is a morbidly obese male sitting at the edge of the bed in no acute distress. Heart: S1, S2 normal. Lungs: Equal air entry bilaterally. No crackles, no rales. Abdomen: Positive bowel sounds. Soft, obese, nontender. Extremities: 1+ edema bilaterally with erythema. Neuro: The patient is alert and oriented x3. LABS: White blood cell count 7.1, hemoglobin 15, hematocrit 47, platelets 202,000. Sodium 144, potassium 3.8, chloride 104, CO2 29, BUN 24, creatinine 1.3, glucose 84. ASSESSMENT AND PLAN: 1. Right lower lobe pneumonia. The patient's antibiotic therapy has been adjusted. Continue with antibiotic therapy. 2. Acute on chronic systolic congestive heart failure exacerbation. Continue on the current cardiac medications as directed by the barrel drainer. 3. Bilateral lower extremity cellulitis. Continue with antibiotic therapy as directed by Dr. Fuentes. 4. Morbid obesity. Aware. 5. Hepatitis C. Aware. 6. Hypothyroidism. Continue on Synthroid. 7. Dilated cardiomyopathy. Aware. 8. Uncontrolled hypertension. The patient is on Coreg and Cozaar. Will defer to the barrel drainer regarding titration. 9. Acute kidney injury. Stable. Continue to monitor closely while on diuretic therapy. 10. Atrial fibrillation. Continue on Coreg and full dose Lovenox. cc: Floridalma Campbell MD
[2019-02-12] MEDS: DUONEB (A & A) INH SCH ×5 (00:23→22:45)
[2019-02-12] MEDS: SYNTHROID PO SCH (06:49)
[2019-02-12] MEDS: LASIX PO SCH (10:06)
[2019-02-12] MEDS: COZAAR PO SCH (10:06)
[2019-02-12] MEDS: COREG PO SCH ×2 (10:06→22:49)
[2019-02-12] MEDS: ZITHROMAX PO SCH (10:06)
[2019-02-12] MEDS: LOVENOX SUBQ SCH ×3 (10:07→22:51)
[2019-02-12 11:04] LABS: HEMATOCRIT 46.5 % (42.0-52.0); HEMOGLOBIN 14.6 g/dL (14.0-18.0); MCH 27.2 PG (27-31); MCHC 31.4 g/dL (33-37); MCV 86.6 FL (81-99); MPV 9.7 FL (7.4-10.4); RBC 5.37 XMIL (4.7-6.1); RDW 15.8 % (11.5-14.5); WBC 6.6 X1000 (4.8-10.8)
[2019-02-12 11:42] LABS: ALB/GLOB RATIO 1.2; ALBUMIN 3.6 g/dL (3.5-5.0); CALCIUM 8.5 mg/dL (8.8-10.2); CREATININE 1.4 mg/dL (0.7-1.2); DIRECT BILIRUBIN 0.8 mg/dL (0.00-0.20); PHOSPHORUS 2.9 mg/dL (2.7-4.5); POTASSIUM 3.8 mmol/L (3.5-5.1); TOTAL BILIRUBIN 1.8 mg/dL (0.20-1.00); TOTAL PROTEIN 6.6 g/dL (6.3-8.3)
[2019-02-12] MEDS ORDERED: MAGNESIUM SULFATE 2 GM/S.W.I. 2 GM/50 ML IVPB IV ONE (14:07)
[2019-02-12] MEDS ORDERED: OMNICEF PO SCH (17:00)
--- NOTE | 2019-02-12 17:15 | INFECTIOUS DISEASE PROGRESS NO ---
DATE: 02/12/2019 I plan to follow up with the patient in 10 days with an appointment at my office at which time, the patient will be examined and a repeat chest x-ray will be taken. cc: Maik Fuentes MD MTDD
--- NOTE | 2019-02-12 17:20 | INFECTIOUS DISEASE PROGRESS NO ---
DATE: 02/12/2019 PRESENT ILLNESS: The patient is being treated for pneumonia and bilateral leg cellulitis. MEDICATIONS: This is the 1st day treatment with Rocephin and azithromycin. PHYSICAL EXAMINATION: Vital Signs: Temperature is 98.2 degrees, pulse 75, respirations 19, blood pressure 131/109. General: This is an obese, middle-aged male. He is in no acute distress. Head, eyes, ears, nose, and throat: He can hear my spoken words and see near objects. I did not notice any white patches on his tongue. Neck: No pain with movement. Lungs: Clear to auscultation. Cardiovascular: Heart rate is regular. Abdomen: Soft and nontender. Extremities: Both legs are less swollen and less erythematous. Neurologic: The patient is alert. He ambulates without difficulty. There is no tremor. LAB AND X-RAY: There is no new radiographic study today. The patient's CBC shows a white count of 6600, hemoglobin 14.6, and platelet count 198,000. Creatinine is 1.4. GFR is 52. AST is 78. ASSESSMENT AND PLAN: The patient has pneumonia and leg cellulitis. I am going to switch him today to a combination of Omnicef and azithromycin. I suggest treating them with the Omnicef 600 mg daily and azithromycin 500 mg p.o. daily for 10 more days. COMORBIDITIES: The patient is obese. He also has congestive heart failure. He did have a positive drug screen for marijuana. I am going to sign off on the patient's case now. Again, I am going to switch him over to Omnicef and azithromycin, Omnicef 600 mg daily and azithromycin 500 mg daily and I would suggest treating him with them for 10 more days. Also the patient will have an appointment at my office in 10 days at which time he will be examined and have a chest x-ray will be done. cc: MD VIMAL Gonzales
[2019-02-12] MEDS: COLACE PO SCH (22:49)
[2019-02-12] MEDS: MIRALAX PO SCH (22:49)
--- NOTE | 2019-02-13 03:54 | PROGRESS NOTE ---
DATE: 02/12/2019 SUBJECTIVE: The patient is sitting at the edge of the bed. He states that he did not sleep last night. He states that his legs are less swollen and red. OBJECTIVE: Vital Signs: Temperature 97 degrees, blood pressure 135/94, heart rate 70, respirations 22, O2 saturation 97% on room air. General: This is a morbidly obese male, sitting at the edge of the bed in no acute distress. Heart: S1, S2 normal. Regular rate and rhythm. Lungs: Equal air entry bilaterally. No wheezing. No rales. Abdomen: Positive bowel sounds. Soft, nontender, and nondistended. Extremities: Trace pedal edema. Decreased erythema in both legs. Neurologic: The patient is alert and oriented x3. LABS: Hemoglobin 14, hematocrit 46, platelets 198,000. Sodium 136, potassium 3.8, chloride 97, CO2 26, BUN 21, creatinine 1.4, glucose 116, total bilirubin 1.8, AST 78, ALT 53, alkaline phosphatase 76. ASSESSMENT AND PLAN: 1. Bilateral lower extremity cellulitis. Continue with antibiotic therapy. 2. Pneumonia. Slowly improving. The patient has been treated transitioned to Omnicef by Dr. Fuentes. The patient will need to complete a total of 10 days of antibiotic therapy total. The patient will then need to follow up with Dr. Fuentes as outpatient. 3. Acute on chronic systolic congestive heart failure exacerbation. Continue with the medication titration as directed by the ict security specialist. 4. Uncontrolled hypertension. The patient's Cozaar was increased today. Continue to monitor closely for improvement. 5. Morbid obesity. Aware. 6. Hepatitis C. The patient will need to be referred to GI as outpatient for further discussion on treatment. 7. Dilated cardiomyopathy. Aware. 8. Atrial fibrillation. The patient is rate controlled. He is currently on full dose Lovenox. 9. Constipation. We will start the patient on MiraLAX and Colace. 10. Acute kidney injury. Continue to monitor closely while on diuretic therapy. cc: Floridalma Campbell MD
[2019-02-13] MEDS: DUONEB (A & A) INH SCH ×3 (05:17→16:51)
[2019-02-13] MEDS: SYNTHROID PO SCH (06:30)
[2019-02-13 07:12] LABS: AGAP 10; ALBUMIN 3.8 g/dL (3.5-5.0); BUN 23 mg/dL (8-22); CALCIUM 8.8 mg/dL (8.8-10.2); CHLORIDE 101 mmol/L (98-107); COSMO 284; CREATININE 1.2 mg/dL (0.7-1.2); ESTIMATED GFR > 60; GLUCOSE 89 mg/dL (70-104); PHOSPHORUS 3.6 mg/dL (2.7-4.5); POTASSIUM 3.6 mmol/L (3.5-5.1); SODIUM 141 mmol/L (136-145); TCO2 30 mmol/L (25-35)
--- NOTE | 2019-02-13 07:22 | Diag Imaging Result Doc PS360 ---
EXAM: CHEST-1 VIEW 02/13/2019 HISTORY: pneumonia TECHNIQUE: AP portable upright at 0603 COMMENT: There is interstitial opacity, particularly in in the right lower lobe. The pleural effusion which was present previously on 02/10/2019 on the right has diminished considerably. IMPRESSION: Improved right pleural effusion. Pulmonary edema and/or pneumonia. Cardiomegaly. Electronically signed by Fady Leon 02/13/2019 7:19 AM
[2019-02-13 07:32] LABS: ALB/GLOB RATIO 1.3; ALBUMIN 3.9 g/dL (3.5-5.0); DIRECT BILIRUBIN 0.1 mg/dL (0.00-0.20); TOTAL BILIRUBIN 0.38 mg/dL (0.20-1.00)
[2019-02-13] MEDS ORDERED: COZAAR PO SCH (09:00)
[2019-02-13] MEDS: LASIX PO SCH (09:19)
[2019-02-13] MEDS: COLACE PO SCH (09:19)
[2019-02-13] MEDS: COREG PO SCH (09:20)
[2019-02-13] MEDS: ZITHROMAX PO SCH (09:20)
[2019-02-13] MEDS: MIRALAX PO SCH (09:20)
[2019-02-13] MEDS: LOVENOX SUBQ SCH (09:23)
[2019-02-13] MEDS ORDERED: LASIX IV ONE (15:01)
[2019-02-13 15:27] VITALS: BP 142/96
[2019-02-13] MEDS ORDERED: ELIQUIS PO SCH (21:00)
--- NOTE | 2019-02-13 22:06 | CARDIOLOGY PROGRESS NOTE ---
DATE: 02/13/2019 SUBJECTIVE: Mr. Ames reports his breathing has improved significantly. OBJECTIVE: Vital signs: He is afebrile, heart rate 83. His most recent blood pressure is 131/109. Systolics seem to be running anywhere from the 130s to the 150s. Diastolics seem to be running 90s to low 100s. General: No acute distress. Cardiovascular: He sounds to be in a regular rate and rhythm. He has no obvious murmurs. He has no S3. His JVP continues to appear to be elevated. He has warm and well-perfused extremities. Chest: Sounds markedly improved with improvement in the reduced breath sounds in the left base. He has no increased work of breathing. Abdomen: Soft, nontender. PERTINENT DATA: His sodium is 141, potassium is 3.6, BUN 23, creatinine 1.2, which is improved. His magnesium level is 1.9. ASSESSMENT: Mr. Ames is a 58-year-old gentleman with a nonischemic cardiomyopathy in atrial fibrillation. PLAN: At this point, we will change him over to Eliquis from Vycon. I will try to add Aldactone to his regimen and give him an additional IV dose of Lasix today. We increased his Losartan this morning. He is on a substantially improved regimen. It sounds like the only thing he was intermittently taking at home was Lasix. Presently, we have added back an ARB, beta alon and are adding Aldactone in tomorrow in addition to a higher dose of Lasix. cc: Lowell Amaya MD
[2019-02-14] MEDS ORDERED: ALDACTONE PO SCH (09:00)
--- NOTE | 2019-02-14 21:27 | DISCHARGE SUMMARY ---
ADMISSION DATE: 02/07/2019 DISCHARGE DATE: 02/13/2019 DISCHARGE DISPOSITION: Home. DISCHARGE CONDITION: Hemodynamically stable. He is not short of breath. He has been transitioned to oral Lasix. Extensively, plan of care was discussed with the patient and his family at bedside. I discussed with them about hepatitis C, congestive heart failure, kidney dysfunction, possible BPH, cardiomyopathy, need for regular followup, pneumonia, need for ID and Cardiology followup, and I answered all of their questions. DISCHARGE DIAGNOSES: 1. Bilateral lower extremity cellulitis. 2. Right lower lobe pneumonia. 3. Acute on chronic congestive heart failure with reduced ejection fraction exacerbation. 4. Nonischemic cardiomyopathy. 5. Chronic atrial fibrillation. 6. Uncontrolled hypertension. 7. Obesity. 8. Hepatitis C. 9. Constipation. 10. Acute kidney injury. 11. Other diagnoses: Medication noncompliance. DISCHARGE MEDICATIONS: Spironolactone 25 mg daily, carvedilol 6.25 mg b.i.d., losartan 50 mg daily, apixaban 5 mg b.i.d., furosemide 80 mg daily, MiraLAX 17 g b.i.d., cefdinir 600 mg daily for 4 days, levothyroxine 25 mcg daily, Zithromax 500 mg daily for 4 days. CONSULTATIONS DURING HOSPITALIZATION: Cardiology, Dr. Amaya. VITALS AT THE TIME OF DISCHARGE: Temperature is 97.8 degrees, pulse 62, respiratory rate 20, blood pressure 140/96, saturating 98% on room air. PHYSICAL EXAMINATION: General: Does not appear in acute distress. HEENT: Oral cavity is moist. Lungs: Air entry bilaterally equal. No wheeze or rhonchi. Cardiovascular: S1, S2 normal. No murmur or gallop. Abdomen: Soft, nontender. Extremities: Mild bilateral lower extremity edema, which has improved. There is bilateral generalized erythema of lower extremity without any warmth or undue tenderness. SIGNIFICANT LABS DURING HOSPITAL ADMISSION AND DISCHARGE: WBC 6000, hemoglobin 14.6, platelets 198,000. BUN 23, creatinine 1.2. His proBNP was 1500. On admission, his total bilirubin was 2.1, which improved to at the time of discharge. Microbiology: Blood culture, sputum culture did not have any growth. Chest x-ray on admission had a dense consolidation on the right suggestive of pneumonia. Chest x-ray on February 13 had improved right-sided pulmonary edema, pneumonia and effusion. Electrocardiogram on admission had atrial fibrillation, nonspecific intraventricular conduction block. Echocardiogram had ejection fraction of 15% to 20% with four- chamber dilatation. There is small concentric pericardial effusion without tamponade. HOSPITAL COURSE SUMMARY: Mr. Ames is 58 years old man with past medical history of hepatitis C, not treated, who came in on 02/07/2019 with chief complaints of worsening shortness of breath of 2 days duration, chest discomfort, worsening cough, orthopnea and paroxysmal nocturnal dyspnea. On presentation, he was found to have right lower lobe pneumonia, mild acute on chronic congestive heart failure exacerbation and chronic atrial fibrillation so he was admitted for further management. He was started on cardiovascular medication regimen including beta blockers, angiotensin receptor blockers and diuretics. He was also started on broad-spectrum antibiotics. With antibiotics and cardiovascular regimen, his symptoms improved. At the time of discharge, he was hemodynamically stable. He was extensively counseled about medication compliance, congestive heart failure, risk of sudden cardiac . He was counseled about blood thinner, atrial fibrillation and the fact that he needs to follow up with ID and Cardiology as an outpatient. Referrals were provided to him as told to me by [facility] to [facility], and his prescription will be sent over to the pharmacy across the street. More than 30 minutes were spent discharging this patient. Plan of care was extensively discussed with the patient and his family at bedside. I also discussed with them about following up and scheduling an appointment with regular physician. Discussed about BPH, benign prostatic hypertrophy in the future. cc: Faisal Boyer MD MTDD
== END 2019-02-13 18:22 | disposition home or self-care (01) | DRG 291 ==
LOC: ED 18:06 → 3N 21:21 → SUATTDRO 21:21 → 4N 21:23
PROVIDERS: ATTEND Internal Medicine

== ENCOUNTER 2019-03-01 14:03 | Inpatient (IN) ==
[2019-03-01] MEDS ORDERED: TYLENOL PO PRN (15:31)
[2019-03-01] MEDS ORDERED: ZOFRAN IV PRN (15:31)
[2019-03-01] MEDS ORDERED: SALINE LOCK IV FLUID XX ONE (15:31)
[2019-03-01] MEDS: DUONEB (A & A) INH SCH ×2 (16:38→21:12)
[2019-03-01] MEDS: MAXIPIME 2 GM in NS 100 ML IV SCH (16:58)
[2019-03-01] MEDS: LASIX IV SCH (16:58)
[2019-03-01 17:11] LABS: BASO# 0.06 X1000 (0.0-0.2); EOS% 3.2 % (0.0-10.0); HEMATOCRIT 46.3 % (42.0-52.0); HEMOGLOBIN 14.4 g/dL (14.0-18.0); LYMPH% 27.1 % (20.5-51.1); MCH 26.8 PG (27-31); MCHC 31.1 g/dL (33-37); MCV 86.1 FL (81-99); MONO# 0.57 X1000 (0.11-0.59); MONO% 9.1 % (1.7-9.3); MPV 9.5 FL (7.4-10.4); NEUT# 3.74 X1000 (1.4-6.5); NEUT% 59.6 % (42.2-75.2); PLT 211 X1000 (130-400); RBC 5.38 XMIL (4.7-6.1); WBC 6.27 X1000 (4.8-10.8)
[2019-03-01 17:29] LABS: AGAP 11; BUN 17 mg/dL (8-22); CALCIUM 8.7 mg/dL (8.8-10.2); CHLORIDE 102 mmol/L (98-107); COSMO 287; CREATININE 1.1 mg/dL (0.7-1.2); ESTIMATED GFR > 60; GLUCOSE 82 mg/dL (70-104); POTASSIUM 3.7 mmol/L (3.5-5.1); SODIUM 144 mmol/L (136-145); TCO2 31 mmol/L (25-35)
[2019-03-01] MEDS: MIRALAX PO SCH (21:24)
[2019-03-01] MEDS: ZYVOX PO SCH (21:24)
--- NOTE | 2019-03-01 21:51 | HISTORY AND PHYSICAL ---
SUBJECTIVE: Patient has no major complaints. OBJECTIVE: Blood pressure is 149/99, heart rate 82, respiratory 19, temperature 97.5 degrees. CHIEF COMPLAINT: Shortness of breath. HISTORY OF PRESENT ILLNESS: This is a 58-year-old male recently diagnosed with pneumonia. I think he was treated and discharged. He was admitted on the 07 of February, discharged on the and now he is back. He followed up today with ID and he was having trouble staying awake during the process. He was falling asleep apparently in the office. They were concerned about that. Chest x-ray showed pneumonia in the right middle and lower lobe with pleural effusion and cardiomegaly. He was directly admitted from the ID clinic. He does report cough and shortness of breath, fever. He is currently not taking any antibiotics but he had previously been on antibiotics. Rocephin and azithromycin was the last dose. The patient admitted for recurrent pneumonia. PAST MEDICAL HISTORY: 1. Reported CHF. 2. No CAD history. 3. Hypertension. 4. Atrial fibrillation. 5. Morbid obesity. 6. COPD. 7. Likely obstructive sleep apnea. PAST SURGICAL HISTORY: Denies. SOCIAL HISTORY: No alcohol or tobacco. Lives alone. FAMILY HISTORY: Of alcoholism in his mother and father. ALLERGIES: No known drug allergies. MEDICATIONS: He currently takes Lasix every other day 80 and Lasix 40 every other day when he takes his Aldactone which is also every other day, Cozaar 50 daily, MiraLAX 17 b.i.d., Synthroid 25 daily. REVIEW OF SYSTEMS: Otherwise negative x10 point review of systems except as outlined in HPI. PHYSICAL EXAMINATION: VITAL SIGNS: Blood pressure 149/99, heart rate of 82, respiratory rate 19, temperature 97.5 degrees. GENERAL: A well-developed male in no acute distress. HEAD EXAM: Was normocephalic atraumatic. EYE EXAM: Pupils equal, round, reactive to light. Extraocular moves were intact. EARS, NOSE AND THROAT EXAM: He had moist mucous membranes. NECK: Supple. CARDIOVASCULAR: Regular rate and rhythm. No murmurs, gallops, or rubs. PULMONARY: Fairly clear. No wheezing. Diminished at bases. No rales. No rhonchi. GI: Was soft, protuberant, nontender, nondistended. Bowel sounds positive. NEUROLOGICAL: Examination was nonfocal. MUSCULOSKELETAL EXAM: Was 4/5 in all 4 extremities. SKIN EXAM: He did have kind of hard pitting edema in his lower extremities with some erythema, a little bit more on the left than the right. LABORATORY DATA: I do not have any new data today. He was a direct admit. ASSESSMENT: This is a 58-year-old male presenting with pneumonia and treated for pneumonia. We are going to continue to monitor him and he has got recurrent. 1. Recurrent pneumonia. We will continue. He is on Zyvox and cefepime per Infectious Disease recommendations. They will monitor with us. We will continue pulmonary toilet. Repeat his chest x-ray in a day or so. 2. History of congestive heart failure with some evidence of overload. We will continue diuretics at least intravenously and monitor for improvement. 3. Chronic obstructive pulmonary disease. He does not appear to be in fulminant failure. We will continue to monitor closely. DISPOSITION: Pending his clinical status, laboratory data. Again, I do not have any major data at this point. cc: Johnny Hunt MD
[2019-03-02] MEDS: DUONEB (A & A) INH SCH ×4 (03:15→21:10)
--- NOTE | 2019-03-02 03:47 | INFECTIOUS DISEASE PROGRESS NO ---
DATE: 03/01/2019 PRESENT ILLNESS: Mr. Ames was in our office this morning, and very lethargic. He had been discharged from the hospital on February 13 and sent home with Omnicef and Zithromax for pneumonia and bilateral lower extremity cellulitis. Upon recheck of his chest x-ray today, he was noted to have an increased pleural effusion and atelectasis and/or pneumonia to the right middle and lower lobes. He reports having a mostly dry cough with shortness of breath, and just "being so sick." We put in the hospital as a direct admit for recurrent pneumonia. He also complains of significant lower extremity pain, with mild, bilateral calf cellulitis. MEDICATIONS: We will start him on Zyvox 600 mg by mouth every 12 hours and cefepime 2 g IV every 12 hours. PHYSICAL EXAMINATION: Vital Signs: Temperature is 97.5 degrees, pulse rate 82, respiratory rate 19, blood pressure 149/99. O2 saturations 97% on room air. The patient is 115 kg. He is 6 feet tall. General: This is a chronically ill-appearing, middle-aged gentleman, he is sitting up in bed, currently in no acute distress. HEENT: He is atraumatic, normocephalic. Oral mucous membranes are pink and moist. Conjunctivae are pink. Neck: Supple. Trachea is midline. Cardiovascular: Irregularly irregular. S1, S2 noted. Respiratory: Lung sounds are clear in the upper lobes. Diminished in the mid and bases. Abdomen: Soft, obese, nontender. Bowel sounds are active. Integumentary: Skin is warm and dry. He does have some scattered dry abrasions which are mild to his upper and lower extremities. There is some mild lower extremity erythema and edema. Neurologic: He is awake, alert, and oriented, but has some difficulty with the timing of recent events. When he is still for more than a minute, he does doze off and has a difficult time answering questions due to drowsiness. He is able to ambulate independently, but gait is mildly uncoordinated. LABORATORY AND X-RAY: No labs available as of yet. However, x-ray done earlier this morning, atelectasis and/or pneumonia to the right middle and lower lobes with pleural effusions and cardiomegaly. ASSESSMENT AND PLAN: Mr. Ames has been direct admitted due to his lethargy and concern for worsening pneumonia as well as continued complaints of lower extremity pain with very mild cellulitis. His calves are only mildly swollen, and the erythema is also mild, however, he does have complaints of a lot of pain to the bilateral lower extremities. At this point, we are still awaiting blood work, and will order Zyvox 600 mg by mouth twice a day and cefepime 2 g IV every 12 hours for broad- spectrum coverage. We will also ask the nursing staff to keep the manual foot gatch of his bed elevated at all times. These plans have been discussed with and recommended by Dr. Fuentes. COMORBIDITIES: For Mr. Ames include atrial fibrillation, obesity, congestive heart failure. Dictated by SATURNINO John for Maik Fuentes MD cc: Maik Fuentes MD [facility]
[2019-03-02] MEDS: LASIX IV SCH ×3 (04:44→16:07)
[2019-03-02] MEDS: MAXIPIME 2 GM in NS 100 ML IV SCH ×2 (04:44→16:08)
[2019-03-02] MEDS: SYNTHROID PO SCH (06:43)
[2019-03-02 07:31] LABS: CALCIUM 8.9 mg/dL (8.8-10.2); CREATININE 1.3 mg/dL (0.7-1.2); POTASSIUM 3.4 mmol/L (3.5-5.1)
[2019-03-02 08:43] LABS: BASO# 0.06 X1000 (0.0-0.2); BASO% 0.9 % (0.0-0.8); EOS# 0.22 X1000 (0.0-0.7); EOS% 3.2 % (0.0-10.0); HEMATOCRIT 47.8 % (42.0-52.0); HEMOGLOBIN 15.1 g/dL (14.0-18.0); LYMPH# 1.95 X1000 (1.2-3.4); LYMPH% 28.4 % (20.5-51.1); MCH 27.2 PG (27-31); MCHC 31.6 g/dL (33-37); MONO% 8.7 % (1.7-9.3); MPV 9.6 FL (7.4-10.4); NEUT# 4.04 X1000 (1.4-6.5); NEUT% 58.8 % (42.2-75.2); PLT 214 X1000 (130-400); RBC 5.56 XMIL (4.7-6.1); RDW 17.4 % (11.5-14.5); WBC 6.87 X1000 (4.8-10.8)
[2019-03-02] MEDS: COZAAR PO SCH (08:48)
[2019-03-02] MEDS: ZYVOX PO SCH ×2 (08:48→20:53)
[2019-03-02] MEDS: ALDACTONE PO SCH (08:49)
[2019-03-02] MEDS: MIRALAX PO SCH ×2 (08:49→20:53)
[2019-03-02] MEDS ORDERED: APRESOLINE IV ONE (11:19)
[2019-03-02] MEDS ORDERED: APRESOLINE IV PRN (11:19)
[2019-03-02] MEDS: IMDUR PO SCH (16:22)
--- NOTE | 2019-03-02 17:16 | Diag Imaging Result Doc PS360 ---
EXAM: CT THORAX W/O CONTRAST - 03/02/2019 HISTORY: pneumonia TECHNIQUE: CT thorax without contrast. No contrast administered per request of the referring provider. COMPARISON: 03/01/2019 chest radiographs FINDINGS: There is cardiomegaly. There is a small to medium pericardial effusion. There is a medium right pleural effusion. There is some compressive atelectasis at the right lower lobe. There is atelectasis of the right middle lobe. There is no other consolidation identified. There is no gross pulmonary edema identified. There is no pneumothorax seen. There are nonspecific small to borderline mediastinal lymph nodes. There is possibly mild low-density retrocrural adenopathy. There is a small amount of upper abdominal ascites. IMPRESSION: Cardiomegaly. Small to medium pericardial effusion. Medium right pleural effusion. Atelectasis at right lower lobe and right middle lobe. No discrete pneumonia. Possible mild low-density retrocrural adenopathy. Small amount of upper abdominal ascites. This exam was performed using automated exposure control, adjustment of mA or kV according to patient size, and/or use of iterative reconstruction technique. Electronically signed by Daniel Card 03/02/2019 5:13 PM
[2019-03-02] MEDS ORDERED: LASIX IV SCH (19:00)
--- NOTE | 2019-03-02 22:35 | PROGRESS NOTE ---
DATE: 03/02/2019 SUBJECTIVE: The patient has no major complaints except he is still short of breath and he is complaining, specifically, about orthopnea. He cannot lie down flat because he gets short of breath. OBJECTIVE: Vital Signs: Blood pressure was 141/93, heart rate 92, respiratory 16, temperature 97.5 degrees. Cardiovascular: Regular rate and rhythm. Pulmonary: Bilateral breath sounds, clear to auscultation. GI: Soft, nontender, nondistended. Bowel sounds were positive. LABORATORY DATA: White count is 6, hemoglobin and hematocrit 15 and 47, platelets 214,000, potassium 3.4, creatinine is up to 1.3 but his proBNP is 1701. PROBLEM LIST: 1. Recurrent pneumonia. He is on Zyvox and cefepime. We will continue to follow. 2. Acute congestive heart failure exacerbation. I am not entirely sure this is systolic versus other. He had an echocardiogram in April which showed an ejection fraction of 33%. He had an echocardiogram in January of this year, which showed an ejection fraction of 15 to 20% so I am not entirely sure this may not be just recurrent heart failure. He has no white count. He has no fever so I am not entirely sure that some of this may not be pure heart failure so I am going to continue diuretics. We will get a Cardiology opinion and go from there. His blood pressure has also not been very well-controlled either, so work on that. Procalcitonin level was pending to decide about the possibility of pneumonia. 3. Atrial fibrillation that appears to be rate-controlled. Continue his regular medications. He is not on anticoagulation at this point. DISPOSITION: Pending his clinical status, but he may be here another couple days. cc: Johnny Hunt MD
--- NOTE | 2019-03-02 23:58 | INFECTIOUS DISEASE PROGRESS NO ---
DATE: 03/02/2019 PRESENT ILLNESS: The patient has pneumonia and/or pulmonary venous congestion. He also has leg cellulitis. MEDICATIONS: This is day #1 of the combination of Zyvox and cefepime. PHYSICAL EXAMINATION: Vital Signs: Temperature is 98 degrees, pulse 50, respirations 14, blood pressure is 136/104. Patient is 6 feet tall and weighs 255 pounds. General: This is an obese, middle-aged male. He is in no acute distress at rest. Head/eyes/ears/nose/throat: He can hear my spoken words and see near objects. He does not have any white coating of his tongue. Neck: No pain with movement. There is no stiffness. Lungs: Bilateral rhonchi. Cardiovascular: Heart rate is irregular. Abdomen: Soft and nontender. Neurologic: The patient is awake. He can move his extremities. There is no tremor. Extremities: Both legs are edematous. They are slightly erythematous, but they already look better than they did yesterday. Neurologic: The patient is alert. He is able to ambulate. He does not have any tremor. His memory regarding his medical history seemed to be intact. LAB AND X-RAY: CBC-WBC 6.87, hgb 15.1, platelets 214K. Creatinine-1.3. GFR-57. Procalcitonin-< 0.1. CT scan of chest-pericardial effusion, right pleural effusion, right lower lobe atelectasis. ASSESSMENT AND PLAN: No pneumonia, only leg cellulitis. Will change to antibiotic for leg cellulitis only. COMORBIDITY: Obesity with chronic leg edema, diabetes. cc: Maik Fuentes MD [facility]
[2019-03-03] MEDS: DUONEB (A & A) INH SCH ×4 (03:00→21:20)
[2019-03-03] MEDS: MAXIPIME 2 GM in NS 100 ML IV SCH ×2 (05:19→16:44)
[2019-03-03] MEDS: LASIX IV SCH ×2 (05:20→16:44)
[2019-03-03] MEDS: LOVENOX SUBQ SCH (05:20)
[2019-03-03] MEDS: SYNTHROID PO SCH (06:05)
[2019-03-03 07:14] LABS: BASO# 0.07 X1000 (0.0-0.2); BASO% 1.1 % (0.0-0.8); EOS# 0.29 X1000 (0.0-0.7); EOS% 4.6 % (0.0-10.0); HEMATOCRIT 45.4 % (42.0-52.0); HEMOGLOBIN 14.4 g/dL (14.0-18.0); LYMPH# 1.51 X1000 (1.2-3.4); LYMPH% 24.1 % (20.5-51.1); MCH 27.1 PG (27-31); MCHC 31.7 g/dL (33-37); MCV 85.3 FL (81-99); MONO% 9.6 % (1.7-9.3); MPV 9.6 FL (7.4-10.4); NEUT% 60.6 % (42.2-75.2); PLT 192 X1000 (130-400); RBC 5.32 XMIL (4.7-6.1); RDW 17.2 % (11.5-14.5); WBC 6.27 X1000 (4.8-10.8)
[2019-03-03 07:54] LABS: CALCIUM 9.2 mg/dL (8.8-10.2); CREATININE 1.3 mg/dL (0.7-1.2); POTASSIUM 3.8 mmol/L (3.5-5.1)
[2019-03-03] MEDS: IMDUR PO SCH (09:39)
[2019-03-03] MEDS: ALDACTONE PO SCH (09:39)
[2019-03-03] MEDS: ZYVOX PO SCH ×2 (09:39→21:35)
[2019-03-03] MEDS: COZAAR PO SCH (09:39)
[2019-03-03] MEDS: MIRALAX PO SCH ×2 (09:40→21:34)
[2019-03-03] MEDS: ASPIRIN PO SCH (14:12)
--- NOTE | 2019-03-03 14:46 | Diag Imaging Result Doc PS360 ---
EXAM: CHEST-2 VIEWS HISTORY: hypoxia TECHNIQUE: Two views COMPARISON: 03/01/2019 FINDINGS: The heart remains markedly enlarged. There is a small right pleural effusion with basilar atelectasis and there may be underlying infiltrates as well. Mild pulmonary edema. No left pleural effusion. IMPRESSION: No interval improvement Electronically signed by Keenan Castellanos 03/03/2019 2:44 PM
--- NOTE | 2019-03-04 01:08 | PROGRESS NOTE ---
DATE: 03/03/2019 SUBJECTIVE: This patient is complaining of some shortness of breath. As per the patient, he cannot lie flat. We had a CT scan done yesterday, that showed moderate-size of right pleural effusion with also pericardial fluid, cardiomegaly, possible low-density retrocrural adenopathy, and a small amount of ascites in the abdominal area in the upper part. I showed him the images and I showed him the amount of fluid at the right side of the lung. I told him that probably we need to go ahead and do a thoracentesis on Tuesday and he agree with that. I talked to him about his history of atrial fibrillation and heart failure. He does not want to be on blood thinners or get an AICD placed. OBJECTIVE: Vital Signs: Temperature 97.6 degrees, pulse 82, respiratory rate 16, blood pressure 122/90, oxygen saturation 91% on room air. HEENT: Head normocephalic, no trauma. PERRLA. Neck: Supple. He does have some JVD. Central trachea. Chest: Decreased breath sounds on the right at the right base. Some crepitus on the left lower base. Abdomen: Soft, protuberant, nontender, nondistended. No hepatosplenomegaly. Extremities: Lower extremity edema 1 to 2+, is not soft, and he has bilateral redness likely due to cellulitis. Neurological: The patient is awake, alert, and oriented x3. No focal neurological deficits. LABORATORY: WBC 6.2, hemoglobin 14.4, hematocrit 45.4, platelets 192,000. Sodium 144, potassium 3.8, chloride 103, bicarbonate 21, BUN 19, creatinine 1.3, glucose 84, calcium 9.2. ASSESSMENT AND PLAN: 1. Acute systolic congestive heart failure exacerbation with an ejection fraction of 15 to 20 percent. This patient has a [id number] right pleural effusion. I discussed with him the treatment options including thoracentesis and he agreed with that. So, probably on Tuesday, we will do a thoracentesis by Radiology Department. In the meantime, we will continue with same management. Cardiology Department on board. 2. Bilateral lower extremity cellulitis. This patient has been placed on antibiotics per Infectious Disease Department. We will continue with same management. 3. Possible underlying pneumonia. Aware. CT scan did not show any discrete pneumonia. 4. History of atrial fibrillation. As per the patient, this is chronic and he has been refusing to use any kind of anticoagulation for multiple reasons, especially the steele of the anticoagulation. I talked to him about warfarin, but he disagreed with this medication as well, even though this is cheaper. 5. History of hypertension. Stable. 6. Apparent history of hepatitis C. Aware. I will recheck on that and probably he will need to follow up as an outpatient with Gastroenterology Department. 7. History of chronic kidney disease. Aware. This is his baseline. cc: Marc Mandujano MD
[2019-03-04] MEDS: DUONEB (A & A) INH SCH ×4 (03:07→21:48)
--- NOTE | 2019-03-04 03:14 | CARDIOLOGY CONSULTATION ---
DATE: 03/03/2019 IMPRESSION: 1. Acute on chronic systolic heart failure. 2. Severe nonischemic cardiomyopathy with previous coronary angiography, April 2018, showing normal coronary arteries and severely depressed left ventricular systolic function. 3. Hypertension. 4. History of substance abuse with marijuana per previous urine drug screen. 5. Previous significant ethanol use in the past. RECOMMENDATIONS: 1. Agree with diuresis with IV Lasix. 2. Continue losartan and beta alon. 3. The patient has history of atrial fibrillation, and given history of hypertension and congestive heart failure, his CHADS Vasc score is 2. Patient advised that there is sufficient thromboembolic risk to merit anticoagulation to lower that risk. He is very much opposed to taking anticoagulants, but is willing to take aspirin p.o. daily. 4. Chronic severely depressed left ventricular systolic function demonstrated. The potential risk for sudden cardiac was discussed with the patient and the merits for implantable defibrillator. He very much wished to avoid having an implantable defibrillator. HISTORY: This 58-year-old, white male, with past history of severe nonischemic cardiomyopathy, hypertension, substance abuse, and previous significant alcohol use in the past, was recently admitted with some dyspnea symptoms. He has also had some cough. He is somewhat vague as to the symptoms that brought him in. He was apparently seen for followup in Infectious Disease office and was having some difficulty staying awake during the visit, prompting referral to the hospital. There has been some orthopnea as well. There has been no chest pain. He is rather vague as to his functional capacity. PAST MEDICAL HISTORY: 1. Severe nonischemic cardiomyopathy. 2. Hypertension. 3. Atrial fibrillation. 4. Obesity. 5. Substance abuse with positive urine drug screen on last admission for marijuana. 6. Possible obstructive sleep apnea. PAST SURGICAL HISTORY: None. SOCIAL HISTORY: Previous significant alcohol use in the past. He rarely drinks a beer. She does not smoke. FAMILY HISTORY: Noncontributory. REVIEW OF SYSTEMS: Pulmonary: Noteworthy for some dyspnea and cough, but otherwise negative. Gastrointestinal: Noncontributory. Constitutional: Noncontributory. Remainder of review of systems negative/noncontributory with 14-total systems reviewed. PHYSICAL EXAMINATION: General: This is an obese, middle-aged male, in no distress, who seems to become agitated quite readily during the course of the encounter. He is on room air. Blood pressure 122/90, heart rate 81, oxygen saturation 97%. HEENT: Extraocular movements intact. Mucous membranes moist. Neck: Supple without discernible jugular venous distention. Chest: Clear to auscultation bilaterally. Cardiac: Regular rate and rhythm without appreciable murmur or gallop. Abdomen: Soft. Bowel sounds are normal. Extremities: Mild edema with chronic stasis changes. Neurologic: Alert and fully oriented. Speech is fluent. He moves all 4 extremities equally well. Skin: Warm and dry. Psychiatric: Somewhat agitated. DIAGNOSTIC DATA: A 12-lead EKG demonstrates atrial fibrillation and nonspecific interventricular conduction block. LABORATORY DATA: Includes white blood cell count of 6.27, hematocrit 45.4, hemoglobin 14.4, platelet count 192,000. Sodium 144, potassium 3.8, chloride 103, carbon dioxide 21, BUN 19, creatinine 1.3, glucose 84. ProB-natriuretic peptide level 1701. cc: Jay Galvez MD
[2019-03-04] MEDS: MAXIPIME 2 GM in NS 100 ML IV SCH ×2 (04:22→16:52)
[2019-03-04] MEDS: LASIX IV SCH ×2 (04:23→17:52)
[2019-03-04] MEDS: SYNTHROID PO SCH (06:28)
[2019-03-04] MEDS: LOVENOX SUBQ SCH (06:29)
[2019-03-04 07:40] LABS: CALCIUM 9.2 mg/dL (8.8-10.2); CREATININE 1.3 mg/dL (0.7-1.2); POTASSIUM 3.8 mmol/L (3.5-5.1)
[2019-03-04] MEDS: IMDUR PO SCH (10:50)
[2019-03-04] MEDS: COZAAR PO SCH (10:50)
[2019-03-04] MEDS: ASPIRIN PO SCH (10:50)
[2019-03-04] MEDS: ALDACTONE PO SCH (10:50)
[2019-03-04] MEDS: ZYVOX PO SCH ×2 (10:51→21:10)
--- NOTE | 2019-03-04 10:51 | PROGRESS NOTE ---
DATE: 03/04/2019 SUBJECTIVE: This patient is feeling much better. Vital signs are stable. He is not using oxygen at this moment. Chest CT scan showed a moderate right pleural effusion, and I discussed with him the possibility of having a thoracentesis done, but since he is having a really good urine output, probably we can just monitor this instead of doing a procedure. So far, he has a negative balance of 7.4 L, and again he is breathing much better. I will order an x-ray for tomorrow and depending on that, we will decide if this patient needs a thoracentesis done or not. OBJECTIVE: Vital Signs: Temperature 98.5 degrees, pulse 73, respiratory rate 16, blood pressure 123/88, oxygen saturation 95% on room air. HEENT: Head normocephalic, no trauma. PERRLA. Neck: Supple. No JVD. Central trachea. Chest: Decreased breath sounds on the right side base with crackles. Abdomen: Soft, protuberant, nontender, nondistended. No hepatosplenomegaly. Extremities: One to 2+ lower extremity edema. The extremities feels tight and he has some erythema, is warm. Neurological: The patient is awake, alert, and oriented x3. No focal neurological deficits. LABORATORY DATA: Sodium 138, potassium 3.8, chloride 97, bicarbonate 26, BUN 18, creatinine 1.3, glucose 91, calcium 9.2. ASSESSMENT AND PLAN: 1. Acute systolic congestive heart failure exacerbation with an ejection fraction of 15 to 20 percent. The patient has a [id number] right pleural effusion, but I believe he is getting better clinically. He is not on oxygen and he is not complaining of shortness of breath at this moment. He still has fluid overload, even though we have a negative balance of at least 7.4 L. We will continue with the same management for now. I will get a new x-ray in the morning. 2. Bilateral lower extremity cellulitis. This patient has been placed on antibiotics per Infectious Disease Department. We will continue with same management. 3. Possible underlying pneumonia, aware. CT scan did not show any signs of pneumonia. 4. History of atrial fibrillation. As per the patient, this is chronic and he has been refusing any kind of anticoagulation for multiple reasons. He also refused to use an AICD. Cardiology on board. 5. History of hypertension, stable. 6. History of hepatitis C. As per the patient, he never received treatment for hepatitis C. I talked to him about the treatment. I am not quite sure if he is interested in that, but he asked me to get the workup and probably he will follow up as an outpatient with Gastroenterology Department. 7. History of chronic kidney disease, aware. This is his baseline. I will ask for hepatitis viral load and genotypes. Upon discharge, we will try to get an appointment for him with a logistics lead, but I am not quite sure if he is going to follow up with that. I had a large conversation about hepatitis C and complications. cc: Marc Mandujano MD
[2019-03-04] MEDS: MIRALAX PO SCH ×3 (10:52→21:09)
[2019-03-04] MEDS: COREG PO SCH (21:11)
[2019-03-05] MEDS: MAXIPIME 2 GM in NS 100 ML IV SCH (04:06)
[2019-03-05] MEDS: LASIX IV SCH (04:07)
[2019-03-05] MEDS: DUONEB (A & A) INH SCH ×4 (05:05→21:39)
[2019-03-05] MEDS: LOVENOX SUBQ SCH (06:26)
[2019-03-05] MEDS: SYNTHROID PO SCH (06:26)
[2019-03-05 07:57] LABS: CALCIUM 9.5 mg/dL (8.8-10.2); CREATININE 1.4 mg/dL (0.7-1.2); POTASSIUM 4.1 mmol/L (3.5-5.1)
--- NOTE | 2019-03-05 10:23 | Diag Imaging Result Doc PS360 ---
EXAM: CHEST-2 VIEWS HISTORY: hypoxia TECHNIQUE: Two views two views COMPARISON: 03/03/2019 FINDINGS: The heart remains enlarged. There is a small right pleural effusion. Infiltrates and atelectasis remain in the right base. These are less prominent than on the prior study. IMPRESSION: Mild interval improvement Electronically signed by Keenan Castellanos 03/05/2019 10:21 AM
[2019-03-05] MEDS: ALDACTONE PO SCH (11:13)
[2019-03-05] MEDS: ASPIRIN PO SCH (11:14)
[2019-03-05] MEDS: IMDUR PO SCH (11:14)
[2019-03-05] MEDS: MIRALAX PO SCH ×2 (11:15→21:14)
[2019-03-05] MEDS: ZYVOX PO SCH (11:15)
[2019-03-05] MEDS: COREG PO SCH ×2 (11:15→21:14)
[2019-03-05] MEDS: COZAAR PO SCH ×2 (11:15→11:16)
--- NOTE | 2019-03-05 12:34 | PROGRESS NOTE ---
DATE: 03/05/2019 SUBJECTIVE: This morning, Mr. Ames refers to be doing fairly okay. No new complaints. Still remains mildly edematous in the lower extremities. OBJECTIVE: Vital Signs: Blood pressure is 122/59, pulse of 89, respirations are 14, temperature is 98.2 degrees, patient is saturating 99%. General Examination: Mr. Ames is a 58-year-old, gentleman. He was in bed. He was not in any distress. He was not on any supplemental oxygen. HEENT: Mucosa is pink and moist. Anicteric. Acyanotic. Neck: Supple. Chest: Good air entry bilaterally. I did not hear any crepitations. Cardiovascular: Regular rate and rhythm with occasional extrasystolic beats. GI: Abdomen is soft, nontender. Bowel sounds present. Extremities: About 1 to 2+ pedal edema. NET MAKER: The patient is awake, alert, and oriented. Laboratory Data: Pro-B is down to 876. Is and Os: Urine output was 6050. It is currently negative balance of 12,700. Diagnostic Studies: A chest x-ray this morning shows some improvement. ASSESSMENT: 1. Acute hypoxemic respiratory failure secondary to pulmonary edema with bilateral pleural effusions. 2. Severe congestive heart failure, ejection fraction of 15% to 20%, in acute exacerbation. 3. Fluid overload secondary to #2. 4. Bilateral lower extremity edema with superimposed cellulitis, improved. 5. History of atrial fibrillation. 6. Hypertension. 7. History of hepatitis C. 8. Chronic kidney disease. Creatinine is stable. PLAN: In general, I think Mr. Ames is doing a lot better. I have reviewed all his current medications and no changes. He is still on cefepime and Zyvox. Infectious disease is on board and we will follow up with further recommendations from them. The patient is also being seen by cardiology. cc: Brian Sanders MD [facility]
--- NOTE | 2019-03-05 15:05 | PROGRESS NOTE ---
DATE: 03/05/2019 SUBJECTIVE: The patient denies chest discomfort or shortness of breath, and presently is on room air. He complains of some headache. OBJECTIVE: Blood pressure 116/88, heart rate 98, oxygen saturation 96% on room air. There is no significant jugular venous distention. Chest is clear to auscultation. Cardiac Examination: Reveals a regular rate and rhythm without appreciable murmur or gallop. Extremities: Demonstrate trace edema with some mild chronic stasis changes. Laboratory Data: Includes a sodium of 138, potassium 4.1, chloride 96, carbon dioxide 36, BUN 19, creatinine 1.4, glucose 85. IMPRESSION: 1. Acute on chronic systolic heart failure, improving with diuresis. Actually, the patient is starting to show some evidence of intravascular volume depletion with diuresis. 2. Severe nonischemic cardiomyopathy with previous coronary angiography in April 2018 showing normal coronary arteries. Severely depressed left ventricular systolic function demonstrated at that time and again by echocardiography in the last month. 3. Hypertension. 4. History of substance abuse with marijuana per previous urine drug screen. 5. Previous significant ethanol use in the past but not currently. RECOMMENDATIONS: 1. Discontinue isosorbide. 2. Transition to oral Lasix. 3. Continue losartan and carvedilol as tolerated. 4. Patient has a history of atrial fibrillation and his CHADS-VASc score is 2. He has been advised of there being sufficient thromboembolic risk to merit anticoagulation but he very much is opposed to taking anticoagulation and was willing to take aspirin p.o. daily. 5. Chronic severely depressed left ventricular systolic function also suggests the potential risk for sudden cardiac . This has been discussed with the patient and the merits for implantable defibrillator have been reviewed with the patient. He very much wished to avoid having an implantable defibrillator at this time. cc: Jay Galvez MD
--- NOTE | 2019-03-05 17:52 | INFECTIOUS DISEASE PROGRESS NO ---
DATE: 03/05/2019 PRESENT ILLNESS: I thought initially the patient did have pneumonia as well as pulmonary venous congestion. However, the patient has had a recent CT scan which showed the right basilar area to be atelectasis and not an infiltrate. Also, the patient's procalcitonin came back and it was less than 0.1 which translates into it is very unlikely that the patient has pneumonia. For these reasons, I think the patient does not have pneumonia and he does have probably some atelectasis and pleural effusions. As regarding the patient's leg cellulitis, I think he did have that in the beginning and I also think it is getting better now. It seems to be less swollen as well as less erythematous. It is of interest to note that every time I have walked into the patient's room, his legs were down and not being elevated like by lying in bed. I have told him multiple times that he needs to elevate his legs as much as possible when he is not walking or standing. PHYSICAL EXAMINATION: Vital Signs: Temperature is 98.2 degrees, pulse 89, respirations 14, blood pressure is 122/59. General: This is an obese, middle-aged male. He is in no acute distress. Head/eyes/ears/nose/throat: He can hear my spoken words and see near objects. He does not have any white coating on his tongue. Neck: No pain with movement. Lungs: Clear to auscultation. Cardiovascular: Heart rate is irregular. Abdomen: Soft and nontender. Extremities: Both legs are less edematous and erythematous than when he came. MEDICATION: The patient currently is receiving Zyvox and cefepime. LAB AND X-RAY: CT scan of the chest shows right lower lobe atelectasis and not an infiltrate. Procalcitonin is less than 0.1. Creatinine is 1.4. GFR is 52. ASSESSMENT AND PLAN: Patient has leg cellulitis but not pneumonia. What I am going to do is stop Zyvox and cefepime and put the patient on Keflex and again I have urged the patient to keep his legs elevated as much as possible. COMORBIDITIES: The patient is obese. He has chronic leg edema, diabetes, and he also has severe congestive heart failure. Patient is in atrial fibrillation now. cc: MD VIMAL Gonzales
[2019-03-05] MEDS: KEFLEX PO SCH (21:14)
[2019-03-06] MEDS: DUONEB (A & A) INH SCH ×4 (03:05→23:17)
[2019-03-06] MEDS: KEFLEX PO SCH ×3 (06:18→22:03)
[2019-03-06] MEDS: SYNTHROID PO SCH (06:18)
[2019-03-06] MEDS: LOVENOX SUBQ SCH (06:19)
[2019-03-06] MEDS: COZAAR PO SCH (08:30)
[2019-03-06] MEDS: ALDACTONE PO SCH (08:30)
[2019-03-06] MEDS: MIRALAX PO SCH ×2 (08:30→22:03)
[2019-03-06] MEDS: DEMADEX PO SCH (08:30)
[2019-03-06] MEDS: ASPIRIN PO SCH (08:30)
[2019-03-06] MEDS: COREG PO SCH ×2 (08:30→22:02)
--- NOTE | 2019-03-06 19:44 | INFECTIOUS DISEASE PROGRESS NO ---
DATE: 03/06/2019 The patient is doing quite well. As I mentioned yesterday, his CT scan did not show pneumonia and his procalcitonin came back at 0.1 which translates into it is very unlikely that he had pneumonia. His bilateral leg cellulitis is improving quite a bit and I have discussed the patient's case with the patient and Dr. Sanders and we all feel that the patient can go home today. I am going to give him a prescription for Keflex 500 mg p.o. every 8 hours #40. I told the patient to lose weight, avoid salt and to elevate his legs as much as possible. I have also asked him to have an appointment at my office in 2 weeks but I told him if his legs are doing fine, he can cancel that. Some of the side effects of Keflex, including rash and diarrhea have been explained to the patient. He agrees with treatment. cc: Maik Fuentes MD
[2019-03-07] MEDS: DUONEB (A & A) INH SCH (03:51)
[2019-03-07] MEDS: KEFLEX PO SCH (06:40)
[2019-03-07] MEDS: SYNTHROID PO SCH (06:40)
[2019-03-07] MEDS: LOVENOX SUBQ SCH (06:42)
[2019-03-07 08:02] VITALS: BP 131/114
[2019-03-07] MEDS: MIRALAX PO SCH (08:25)
[2019-03-07] MEDS: ALDACTONE PO SCH (08:26)
[2019-03-07] MEDS: ASPIRIN PO SCH (08:26)
[2019-03-07] MEDS: DEMADEX PO SCH (08:26)
[2019-03-07] MEDS: COZAAR PO SCH (08:26)
[2019-03-07] MEDS: COREG PO SCH (08:27)
--- NOTE | 2019-03-07 18:34 | DISCHARGE SUMMARY ---
ADMISSION DATE: 03/01/2019 DISCHARGE DATE: 03/07/2019 ADMISSION DIAGNOSES: 1. Recurrent pneumonia. 2. History of congestive heart failure with some evidence of fluid overload. 3. Chronic obstructive pulmonary disease. DIAGNOSES AT THE TIME OF DISCHARGE: 1. Acute hypoxemic respiratory failure on presentation secondary to pulmonary edema with bilateral pleural effusion. 2. Severe congestive heart failure, ejection fraction of 15% to 20% in acute exacerbation. 3. Fluid overload secondary #2. 4. Bilateral lower extremity edema with superimposed cellulitis. 5. History of atrial fibrillation. 6. Hypertension. 7. Hepatitis C. 8. Chronic kidney disease. DISCHARGE MEDICATIONS: 1. Spironolactone 25 mg p.o. daily. 2. Losartan 50 mg p.o. daily. 3. MiraLAX 17 g p.o. b.i.d. 4. Levothyroxine 25 mcg p.o. daily. 5. Carvedilol 6.25 b.i.d. 6. Torsemide 20 mg p.o. daily. 7. Keflex 500 p.o. q.8 hours. 8. Aspirin 325 p.o. daily. 9. Carvedilol 6.25 p.o. q.12. CONSULTATION DURING THIS ADMISSION: 1. Infectious Disease was consulted. Patient was seen by Dr. Fuentes. 2. Cardiology was consulted. Patient was seen by Dr. Galvez. INVASIVE PROCEDURES DONE DURING THIS ADMISSION: 1. None. IMAGING STUDIES OF SIGNIFICANCE: 1. CT scan of the chest without contrast showed cardiomegaly, small to medium pericardial effusion. 2. A chest x-ray did show no interval improvement. 3. A follow-up chest x-ray on 03/05/2019 showed mild interval improvement. PRESENTING COMPLAINT: Shortness of breath. HISTORY OF PRESENTING COMPLAINT: Mr. Ames is a 58-year-old male who was recently discharged from the hospital on February 13 because of trouble staying awake. Apparently he fell asleep in the office. X-ray show some infiltrates cardiomegaly, was directly admitted from the ID clinic. HOSPITAL COURSE: Mr. Ames was eventually found to be in congestive heart failure with a pro B of 1700, which improved to about 876 on the time of discharge. Shortness of breath also got a lot better. A CT scan of the chest did reveal some congestive pulmonary edema with cardiomegaly. He has an ejection fraction of 15% to 20% at best. He was started on diuretics and heart medications which he progressively got better. Initially, was also thought to have possible pneumonia and cellulitis in both lower extremities and was seen by Dr. Fuentes. During the hospital course, Mr. Ames continued to improve. Shortness of breath got a whole lot better. His IV diuretics were switched to p.o. and his IV antibiotics were also switched to p.o. This morning, he refers to be doing well and we think he is stable for discharge. Of note, Mr. Ames did not believe in any way that he was in congestive heart failure and that his ejection fraction was just too low and that he needed to be evaluated for possible cardiac device. He was in complete denial. He thinks the medications that he gets in the hospital sometimes just poison him so he does not necessarily take his medication. Almost every provider that got in contact with him did their best to advise and recommend that he needs to be compliant with medications to help improve his current underlying medical condition, which seems to be end-stage congestive heart failure. The patient was evaluated by Dr. Galvez during the hospital course. This morning, he is clinically stable. We think he is okay for discharge. His current vitals at the time of discharge, blood pressure is 139/69, pulse of 58, respirations 20, temperature 98.3 degrees. Patient was saturating 96% on room air. DISPOSITION: He is going to be discharged in stable condition. FOLLOWUP: Dr. Galvez, as well as Dr. Fuentes. TIME SPENT FOR DISCHARGE: 38 minutes. cc: Brian Sanders MD
--- NOTE | 2019-03-08 16:04 | DISCHARGE SUMMARY ---
ADMISSION DATE: 03/01/2019 DISCHARGE DATE: 03/07/2019 DISPOSITION: Home. FOLLOW UP: 1. Dr. Guo. 2. Dr. Fuentes. CONSULTATION DURING THIS ADMISSION: 1. Infectious Disease was consulted. Patient was seen by Dr. Fuentes. 2. Cardiology was consulted. Patient was seen by Dr. Galvez. INVASIVE PROCEDURES DONE DURING THIS ADMISSION: None. IMAGING STUDIES OF SIGNIFICANCE: 1. A CT scan of the chest without contrast was done on 03/02/2019 which showed cardiomegaly, small to medium pericardial effusion, medium right pleural effusion, atelectasis at the right lower lobe and right middle lobe. No discrete pneumonia. Possible mild low- density retrocrural adenopathy. Small amount of upper abdominal ascites. 2. Chest x-ray done on 03/05 shows mild interval improvement on the congestion. ADMISSION DIAGNOSES: 1. Recurrent pneumonia. 2. History of congestive heart failure with evidence of overload. 3. Chronic obstructive pulmonary disease. DIAGNOSIS AT THE TIME OF DISCHARGE: 1. Acute hypoxemic respiratory failure secondary to pulmonary edema with bilateral pleural effusions. 2. Severe congestive systolic heart failure, ejection fraction of 15% to 20%, in acute exacerbation. 3. Bilateral lower extremity edema with superimposed cellulitis. 4. History of atrial fibrillation. 5. Hypertension. 6. Hepatitis C. 7. Chronic kidney disease stage IIIA, presumably cardiorenal in etiology. DISCHARGE MEDICATIONS: 1. Spironolactone 25 mg p.o. daily. 2. Losartan 50 mg p.o. daily. 3. Levothyroxine 25 mcg p.o. daily. 4. Carvedilol 6.25 p.o. q.12. 5. Cephalexin 500 p.o. q.8. 6. Torsemide 20 mg p.o. daily. PRESENTING COMPLAINT: Shortness of breath. HISTORY OF PRESENTING COMPLAINT: Mr. Ames is a 58-year-old male who was discharged from the hospital February 13, back because of shortness of breath. Was evaluated, was found to be in congestive heart failure, and was admitted for further medical care. HOSPITAL COURSE: Mr. Ames was admitted to the medical floor, was started on IV diuretic therapy. He was also started on antibiotics for possible pneumonia and bilateral lower extremity cellulitis. Cardiology and Infectious Disease were both consulted. During the hospital course Mr. Ames continued to improve, to where his O2 saturation got better and he was off supplemental oxygen for the major part of the hospital course. Mr. Ames did diurese very adequately. He was about 16,000 negative balance at the time of his discharge. His weight was 255, but there was no other documentation to know the difference. Mr. Ames was evaluated by Cardiology on multiple occasions. Because he has atrial fibrillation and a very high CHADS-Vasc score, he was advised that he needed to be on anticoagulant. However, Mr. Ames refused to be on anticoagulant for personal reasons. Because he also has that very poor ejection fraction, discussions were held with him for possible cardiac device (AICD). However, Mr. Ames also declined very strongly to any cardiac device. He said he is known to have atrial fibrillation for more than 20 years and he was advised to be on blood thinners. At that time he refused and 20 years later he is proud and glad that he did not take any blood thinner because he would have been by now. In the same way, he is refusing it now and he will refuse any cardiac device. Mr. Ames was held 1 more day in the hospital because Cardiology wanted to talk to him some more, but he is very strong on his position that he does not want anything else done to him and he wants to try just medications for his heart failure. Mr. Ames will follow up with Dr. Galvez on an outpatient basis. At the time of his discharge, his blood pressure was 131/114, pulse of 90, respirations 22, temperature 95.9 degrees. His lower extremity edema has resolved. His proBNP has also reduced to 876. We think he is in stable condition to be discharged. All the discharge instructions have been discussed with him and he voiced understanding. TIME SPENT FOR DISCHARGE: Thirty-eight minutes. cc: Brian Sanders MD [facility]
== END 2019-03-07 11:46 | disposition home or self-care (01) | DRG 291 ==
LOC: DIRADM 14:03 → SUATTDRO 14:03 → 3N 14:40
PROVIDERS: ATTEND Internal Medicine

== ENCOUNTER 2019-07-17 16:19 | Inpatient (IN) ==
--- NOTE | 2019-07-17 16:51 | Diag Imaging Result Doc PS360 ---
EXAM: CHEST-PORTABLE HISTORY: sob TECHNIQUE: Single view COMPARISON: 03/05/2019 FINDINGS: The lungs are well expanded. The heart is enlarged. The vessels are mildly distended. There are no infiltrates. No effusion identified. IMPRESSION: Cardiomegaly with mild pulmonary edema Electronically signed by Keenan Castellanos 07/17/2019 4:49 PM
--- NOTE | 2019-07-17 16:57 | PROVIDER DOCUMENTATION ---
This chart was entered by Estela Wesley Scribe, acting as scribe for Sid Garcia MD. HPI-General Adult - General Source: patient, EMS (First response) Unable to obtain history due to:: other (patient is poor historian) - History of Present Illness -Gen Adult Nature of Presenting Problems: 58yom brought in by EMS. Patient is a morbidly obese white male with history of Afib, LBBB, arrhythmia, and CHF who presents with worsening painful BLE edema,swollen penis/scrotum, and orthopnea for past 2 weeks. Patient reports multiple admissions for CHF. Followed by Dr. Galvez. Location of Pain/Injury: reports: lower extremity (swelling) Pain Radiation: reports: scrotal (swelling) Quality of Pain: reports: fullness, pressure Severity: reports: moderate (high end moderate) Onset/Duration: reports: gradual Timing: reports: still present, constant Context/Activities at Onset: reports: light activity Modifying Factors: worse with: nothing Associated Symptoms: reports: constipation, genitourinary problems (trouble urinating secondary to edema), shortness of breath. denies: back/neck pain, chest pain Similar Symptoms Previously?: Yes Recently seen or treated by another doctor?: No (last hospital admission February 2019) <Sid Garcia - Last Filed: 07/17/19 18:56> <Son Lester - Last Filed: 07/18/19 00:52> - General Stated Complaint: A-FIB Time Seen by Provider: 07/17/19 16:28 Allergies/Adverse Reactions: Patient Allergies Allergy/AdvReac Type Severity Reaction Status Date / Time No Known Allergies Allergy Verified 02/07/19 19:12 Home Medications: Home Medication List Medication Instructions Recorded Confirmed Last Taken Type Levothyroxine [Synthroid] 25 microgm PO DAILY@0700 #30 tab 02/13/19 03/01/19 03/01/19 Rx Losartan [Cozaar] 50 mg PO DAILY #60 tab 02/13/19 03/01/19 03/01/19 Rx Polyethylene Glycol 3350 [Miralax] 17 gm PO BID #10 powder, packet 02/13/19 03/01/19 1 Day Ago Rx ~02/28/19 Spironolactone [Aldactone] 25 mg PO DAILY #30 tab 02/13/19 03/01/19 03/01/19 Rx Aspirin 325 mg PO DAILY #120 tab 03/06/19 Unknown Rx Carvedilol [Coreg] 6.25 mg PO Q12H #120 tab 03/06/19 Unknown Rx CephALEXIN [Keflex] 500 mg PO Q8H #21 cap 03/06/19 Unknown Rx Torsemide [Demadex] 20 mg PO DAILY #60 tab 03/06/19 Unknown Rx Review of Systems - Adult - REVIEW OF SYSTEMS - ADULT ROS:: limited per condition (patient is poor historian) Constitutional: denies: chills, fever Eyes: reports: no symptoms reported Ears, Nose, Mouth & Throat: reports: no symptoms reported Cardiovascular: reports: see HPI, irregular heart rate (per EMS when AOS). denies: chest pain Respiratory: reports: shortness of breath. denies: wheezing Gastrointestinal: reports: see HPI, constipation. denies: nausea, vomiting Genitourinary: reports: see HPI, other (difficulty urinating secondary to swollen scrotum) Musculoskeletal: reports: no symptoms reported Integumentary: reports: see HPI, other (BLE edema) Neurological: reports: no symptoms reported Psychiatric: reports: no symptoms reported Endocrine: reports: see HPI, other (scrotum swollen difficulty urination) Hematologic/Lymphatic: reports: no symptoms reported Allergic/Immunologic: reports: no symptoms reported All Other Systems: Reviewed and Negative <Sid Garcia - Last Filed: 07/17/19 18:56> Past History - Adult - PAST MEDICAL HISTORY-ADULT Review of Records: reports: Old Records Reviewed, Nursing Assessment Review, Medications Reviewed, Social history reviewed & non-contributory. Major Childhood Illnesses: reports: denies history Cardiovascular: reports: A-Fib, CHF, HTN Respiratory: reports: denies history Gastrointestinal: reports: denies history Obstetrical/Gynecological: reports: denies history Genitourinary: reports: denies history Musculoskeletal: reports: denies history Neurological: reports: denies history Endocrine/Immune: reports: denies history Other Conditions: reports: denies history - IMMUNIZATION STATUS Childhood Immunizations: See Nurse Assessment Flu Vaccine: See Nurse Assessment - FAMILY HISTORY Family History: reviewed, not pertinent <Sid Garcia - Last Filed: 07/17/19 18:56> Physical Exam-General - PHYSICAL EXAM-ADULT Exam Limited by: poor historian Initial Vital Signs Reviewed: Yes - CONSTITUTIONAL General Appearance: alert, mild distress (nontoxic in appearance), obese - EYES Eyes: PERRL/EOMI, pink conjunctivae, sclera injected (left eye, subconjunctival hemorrhage) - HEAD, EARS, NOSE, MOUTH & THROAT HENMT: moist mucous membranes - NECK Neck: full range of motion, supple - RESPIRATORY Respiratory: chest non-tender, decreased breath sounds, increased rate - CARDIOVASCULAR Cardiovascular: irregularly irregular - CHEST (BREASTS) Chest/Breast: deferred - GASTROINTESTINAL (ABDOMEN) Abdominal Exam: soft. negative: guarding - GENITOURINARY Male Genitalia: scrotal swelling, other (swelling over penile foreskin) Rectal Exam: deferred Hemoccult Exam: deferred - LYMPHATIC Lymphatic: no adenopathy - MUSCULOSKELETAL Back Exam: no CVA tenderness Extremity: inflammation, swelling (BLE- pretibial and ankle edema) - SKIN Integumentary: normal color, normal turgor, warm/dry - NEUROLOGIC Neurologic: grossly normal - PSYCHIATRIC Psych/Mental Status: oriented x 3, disheveled, other (patient was poor historian and conversation was hard to keep on track) <Sid Garcia - Last Filed: 07/17/19 18:56> Progress - PLAN OF CARE/RESULTS Result Diagrams: 07/17/19 17:40 07/17/19 17:40 - EKG 1 Time of EKG reading by physician:: 16:58 EKG Read and Signed by:: Sid Garcia Rate: 81 Rhythm: atrial fibrillation QRS: NSIVCD Comments: no STEMI - XRAY 1 XRAY: Bilateral XRAY Study: Chest Impression: See EMR Report ( FINDINGS: The lungs are well expanded. The heart is enlarged. The vessels are mildly distended. There are no infiltrates. No effusion identified. IMPRESSION: Cardiomegaly with mild pulmonary edema Electronically signed by Keenan Castellanos 07/17/2019 4:49 PM) - CHANGE OF SHIFT REPORT (ED Provider) 1 Report Given and Care Transferred to:: Dr. Lester Time of Transfer: 19:00 Items Pending: CT/MRI Results, Ultrasound Results <Sid Garcia - Last Filed: 07/17/19 18:56> - PLAN OF CARE/RESULTS Progress/Plan/Lab Results: Vital Signs - 8 hr 07/17/19 16:39 07/17/19 18:57 07/17/19 19:55 Temperature 98.0 F Pulse Rate 83 84 98 H Respiratory Rate 20 22 20 Blood Pressure 147/100 146/95 150/113 O2 Sat by Pulse Oximetry 94 L 95 95 07/17/19 20:55 Temperature Pulse Rate 95 H Respiratory Rate 18 Blood Pressure 137/120 O2 Sat by Pulse Oximetry 96 Laboratory Results - last 24 hr 07/17/19 07/17/19 07/17/19 17:40 17:40 17:40 WBC 6.78 RBC 5.20 Hgb 14.7 Hct 46.5 MCV 89.4 MCH 28.3 MCHC 31.6 L RDW Std Deviation 15.6 H Plt Count 235 MPV 9.2 Immature Gran % (Auto) 0.4 Neut % (Auto) 66.2 Lymph % (Auto) 19.0 L [place] % (Auto) 8.7 Eos % (Auto) 3.8 Baso % (Auto) 1.9 H Immature Gran # (Auto) 0.03 Neut # (Auto) 4.48 Lymph # (Auto) 1.29 [place] # (Auto) 0.59 Eos # (Auto) 0.26 Baso # (Auto) 0.13 D-Dimer, Quantitative Sodium 140 Potassium 4.2 Chloride 102 Carbon Dioxide 28 Anion Gap 10 BUN 13 Creatinine 1.1 Estimated GFR/1.73 m2 > 60 BUN/Creatinine Ratio 12 Glucose 96 Calculated Osmolality 279 Calcium 8.2 L Magnesium 2.1 Total Bilirubin 1.79 H AST 75 H ALT 45 H Alkaline Phosphatase 85 Creatine Kinase 597 H Creatine Kinase Index 3.1 H CK-MB (CK-2) 18.61 H Troponin T High Sens 70 H Ezg-A-Hbpniedqcoa Pept Total Protein 6.6 Albumin 3.2 L Globulin 3.4 Albumin/Globulin Ratio 0.9 Plasma Lactate 07/17/19 07/17/19 07/17/19 17:40 17:40 17:40 WBC RBC Hgb Hct MCV MCH MCHC RDW Std Deviation Plt Count MPV Immature Gran % (Auto) Neut % (Auto) Lymph % (Auto) [place] % (Auto) Eos % (Auto) Baso % (Auto) Immature Gran # (Auto) Neut # (Auto) Lymph # (Auto) [place] # (Auto) Eos # (Auto) Baso # (Auto) D-Dimer, Quantitative 11.11 H Sodium Potassium Chloride Carbon Dioxide Anion Gap BUN Creatinine Estimated GFR/1.73 m2 BUN/Creatinine Ratio Glucose Calculated Osmolality Calcium Magnesium Total Bilirubin AST ALT Alkaline Phosphatase Creatine Kinase Creatine Kinase Index CK-MB (CK-2) Troponin T High Sens Vfp-[id number]-Znjfqztexma Pept 2346 H Total Protein Albumin Globulin Albumin/Globulin Ratio Plasma Lactate 1.4 07/17/19 19:37 WBC RBC Hgb Hct MCV MCH MCHC RDW Std Deviation Plt Count MPV Immature Gran % (Auto) Neut % (Auto) Lymph % (Auto) [place] % (Auto) Eos % (Auto) Baso % (Auto) Immature Gran # (Auto) Neut # (Auto) Lymph # (Auto) [place] # (Auto) Eos # (Auto) Baso # (Auto) D-Dimer, Quantitative Sodium Potassium Chloride Carbon Dioxide Anion Gap BUN Creatinine Estimated GFR/1.73 m2 BUN/Creatinine Ratio Glucose Calculated Osmolality Calcium Magnesium Total Bilirubin AST ALT Alkaline Phosphatase Creatine Kinase Creatine Kinase Index CK-MB (CK-2) Troponin T High Sens Dec-P-Nsegbzjjpwg Pept Total Protein Albumin Globulin Albumin/Globulin Ratio Plasma Lactate 1.3 Orders Category Date Time Status Cardiac Monitoring DIRECTED Care 07/17/19 16:28 Active NEWS Score 2-4:Order NEWS Lactate Series NOW Care 07/17/19 16:43 Active CHEST-PORTABLE [RAD] Stat Exams 07/17/19 16:29 Completed CTA [CT ANGIOGRM PULMONARY ARTERIES] [CT] Stat Exams 07/17/19 18:53 Completed BNP [PRO B-NATRIURETIC PEPTIDE] Stat Lab 07/17/19 17:40 Completed CBC WITH ELECTRONIC DIFF [HEME] Stat Lab 07/17/19 17:40 Completed CK PROFILE [SP CHEM] Stat Lab 07/17/19 17:40 Completed CMP [COMPREHENSIVE METABOLIC PANEL] [CHEM] Stat Lab 07/17/19 17:40 Completed D-DIMER [COAG] Stat Lab 07/17/19 17:40 Completed LACTATE, PLASMA [CHEM] Q3H Lab 07/17/19 17:40 Completed LACTATE, PLASMA [CHEM] Stat Lab 07/17/19 19:37 Completed MAGNESIUM [CHEM] Stat Lab 07/17/19 17:40 Completed TROPONIN T HIGH SENSITIVITY Stat Lab 07/17/19 17:40 Completed Furosemide [Lasix] Med 07/17/19 17:00 Discontinued 60 mg IV NOW ONE Oxygen Device Stat Oth 07/17/19 17:20 Active EKG [EKG] Stat Ther 07/17/19 16:27 Draft US [Venous U/S Bilateral Legs] Stat Ther 07/17/19 18:55 Ordered Result Diagrams: 07/17/19 17:40 07/17/19 17:40 - REASSESSMENT Reassessment #1 Time Reassessed: 22:00 Status: unchanged - CONSULTS/PCP/HOSPITALIST Notification #1 *Consult/PCP/Hospitalist*: d/w DR PETERSON Time Discussed: 22:35 Consult Disposition: Admit <Son Lester - Last Filed: 07/18/19 00:52> Departure - Departure Certified Medical Emergency: Emergent - Critical Care Note This patient required my direct & personal management of CC.: No <Sid Garcia - Last Filed: 07/17/19 18:56> - Departure Date of Disposition Decision: 07/17/19 Time of Disposition Decision: 22:50 <Son Lester - Last Filed: 07/18/19 00:52> - Departure DIAGNOSIS: Elevated troponin CHF exacerbation Qualifiers: Heart failure type: unspecified Qualified Code(s): I50.9 - Heart failure, unspecified Atrial fibrillation Qualifiers: Atrial fibrillation type: unspecified Qualified Code(s): I48.91 - Unspecified atrial fibrillation Disposition: ADMITTED INPATIENT 09 Condition: Stable Referrals and Follow-Ups: None,PCP [Primary Care Provider] - Attestation - Physician/ JOHN Attestation Patient care was provided by Advanced Practice Provider:: No The physician spent face to face time with patient:: Yes Advanced Practice Provider documentation review:: Supervising physician onsite and consulted in the evaluation and care of this patient. The physician did have a face to face encounter with the patient. <Sid Garcia - Last Filed: 07/17/19 18:56> This chart was documented by the indicated scribe, (Estela Wesley Scribe) and accurately reflects the services I performed and decisions made by me, Sid Garcia MD, as attested by the provider's signature.
[2019-07-17] MEDS ORDERED: LASIX IV ONE (17:00)
[2019-07-17 17:52] LABS: BASO# 0.13 X1000 (0.0-0.2); BASO% 1.9 % (0.0-0.8); EOS# 0.26 X1000 (0.0-0.7); EOS% 3.8 % (0.0-10.0); HEMATOCRIT 46.5 % (42.0-52.0); HEMOGLOBIN 14.7 g/dL (14.0-18.0); IMM GRAN# 0.03 X1000 (0.0-0.04); IMM GRAN% 0.4 % (0.0-0.5); LYMPH# 1.29 X1000 (1.2-3.4); MCH 28.3 PG (27-31); MCHC 31.6 g/dL (33-37); MCV 89.4 FL (81-99); MONO# 0.59 X1000 (0.11-0.59); MONO% 8.7 % (1.7-9.3); MPV 9.2 FL (7.4-10.4); NEUT# 4.48 X1000 (1.4-6.5); NEUT% 66.2 % (42.2-75.2); PLT 235 X1000 (130-400); RDW 15.6 % (11.5-14.5); WBC 6.78 X1000 (4.8-10.8)
[2019-07-17 18:12] LABS: AGAP 10; ALB/GLOB RATIO 0.9; ALBUMIN 3.2 g/dL (3.5-5.0); ALKALINE PHOSPHATASE 85 U/L (32-122); BUN 13 mg/dL (8-22); CALCIUM 8.2 mg/dL (8.8-10.2); CHLORIDE 102 mmol/L (98-107); CK PROFILE 597 U/L (24-204); COSMO 279; CREATININE 1.1 mg/dL (0.7-1.2); ESTIMATED GFR > 60; GLUCOSE 96 mg/dL (70-104); GOT 75 U/L (10-34); GPT 45 U/L (10-44); MAGNESIUM 2.1 mg/dL (1.5-2.7); POTASSIUM 4.2 mmol/L (3.5-5.1); SODIUM 140 mmol/L (136-145); TCO2 28 mmol/L (25-35); TOTAL BILIRUBIN 1.79 mg/dL (0.20-1.00); TOTAL PROTEIN 6.6 g/dL (6.3-8.3)
[2019-07-17 18:26] LABS: CK INDEX 3.1 (0.0-2.5); CK-MB 18.61 ng/mL (0.0-5.0)
--- NOTE | 2019-07-17 19:34 | EKG Report ---
Test Performed on : 07/17/2019 4:57:54 PM Test Reason : sob Blood Pressure : / mmHG Vent. Rate : 081 BPM Atrial Rate : 074 BPM P-R Int : 000 ms QRS Dur : 168 ms QT Int : 420 ms P-R-T Axes : 000 -88 091 degrees QTc Int : 487 ms Atrial fibrillation. Left axis deviation Nonspecific intraventricular block Lateral infarct (cited on or before 07-FEB-2019) Abnormal ECG When compared with ECG of 07-FEB-2019 20:05, Nonspecific T wave abnormality now evident in Lateral leads Unconfirmed Result
--- NOTE | 2019-07-17 20:16 | Diag Imaging Result Doc PS360 ---
EXAM: CT ANGIOGRM PULMONARY ARTERIES INDICATION: sob, elevated d-dimer TECHNIQUE: This exam was performed using automated exposure control, adjustment of mA or kV according to patient size, and/or use of iterative reconstruction technique. Thin section axial images and 3-D MIPS were obtained. COMPARISON: 03/02/2019 FINDINGS: There is no evidence of pulmonary embolism. There is a moderate-sized pericardial effusion that is essentially stable. There is stable cardiomegaly. There is no evidence of significant mediastinal or hilar lymphadenopathy. There is a moderate-sized right pleural effusion that is smaller than the previous study. There is adjacent atelectasis. There is groundglass opacity in the right lower lobe near the base likely representing edema. There is minimal subsegmental atelectasis at the left lung base. Limited views of the upper abdomen reveals ascites tracking around the liver and spleen. There is a calcified stone in the gallbladder lumen. IMPRESSION: 1.Cardiomegaly and moderate-sized pericardial effusion that is essentially stable. 2.Moderate-sized right pleural effusion that is smaller than the previous study. 3.Groundglass opacity in the right lower lobe at the base most consistent with edema. 4.Ascites tracking around the liver and spleen. 5.No evidence of pulmonary embolism. Electronically signed by Wesley Burgos 07/17/2019 8:14 PM
--- NOTE | 2019-07-18 01:28 | HISTORY AND PHYSICAL ---
PRIMARY CARE PROVIDER: None. CHIEF COMPLAINT: Shortness of breath, scrotal edema, lower extremity edema x1 week. HISTORY OF PRESENTING ILLNESS: A 58-year-old male with a history of CHF, severe nonischemic cardiomyopathy, hypertension, atrial fibrillation, obesity, who had presented to emergency department with 1-week history of progressive worsening shortness of breath. The patient states that he was having difficulty breathing. He was also noticing a moderate amount of edema in his lower extremity and also having scrotal edema. He was seen in the ER. His symptoms were consistent with heart failure. He was given diuresis with Lasix and he will require admission for further management. At the time of my examination, patient denied any headache, fever, chills, chest pain, hemoptysis, melena, but complained of shortness of breath, lower extremity and scrotal edema. PAST MEDICAL HISTORY: Severe nonischemic cardiomyopathy, hypertension, CHF, atrial fibrillation, obesity, sleep apnea. PAST SURGICAL HISTORY: None. ALLERGIES: No known drug allergies. CURRENT MEDICATIONS: Include aspirin 325 mg p.o. daily, carvedilol 6.25 mg p.o. q.12 hours, levothyroxine 25 mcg p.o. daily, losartan 50 mg p.o. daily, spironolactone 25 mg p.o. daily, Demadex 20 mg p.o. daily. SOCIAL HISTORY: No history of smoking, alcohol or illicit drug use. FAMILY HISTORY: No history of coronary disease. REVIEW OF SYSTEMS: Fourteen point review of systems is as in HPI. Other systems negative. EXAMINATION: General: Cooperative, friendly male. He is resting more comfortably now. Vital Signs: Temperature 98 degrees, pulse 82, respirations 20, blood pressure 147/100, saturating 94%. HEENT: Atraumatic normocephalic. Extraocular movements intact. PERRLA. Neck: No masses. Chest: Bibasilar rales. Cardiovascular: Regular rate and rhythm. Abdomen: Soft, obese. Positive bowel sounds. Extremities: +1 edema. Genitourinary: Moderate scrotal edema. Skin: Warm. Neurologic: Nonfocal. LABORATORIES AND STUDIES: ProBNP is 2346. Sodium 140, potassium 4.2, chloride 102, CO2 is 28, BUN is 13, creatinine is 1.1. Glucose 96. WBC 6.78, hemoglobin 14.7, hematocrit 46.5, and platelets 235,000. Pulmonary arteriogram is negative for pulmonary embolism, shows moderate size pericardial effusion and cardiomegaly. ASSESSMENT: This is a 58-year-old obese male with a history of severe nonischemic cardiomyopathy, congestive heart failure, hypertension, atrial fibrillation, apparently not on anticoagulation due to personal reasons, who had presented to emergency department with 1-week history of progressive shortness of breath and scrotal edema. He was seen in the ED. Symptoms consistent with heart failure. He will require admission for further management. 1. Acute congestive heart failure exacerbation. 2. Chronic atrial fibrillation. 3. Hypertension. 4. Obesity. PLAN: 1. We will admit patient to medical floor with telemetry. 2. Continue with diuresis with Lasix. 3. We will put patient on strict in's and outs. 4. Consult Cardiology. 5. We will trend his troponins. 6. Monitor patient on telemetry. 7. Monitor blood pressure. Resume antihypertensive agent. 8. We will put patient on DVT prophylaxis with Lovenox. 9. We will continue to follow and reassess, make further recommendation based on patient's clinical course. cc: Michael Valdez MD
[2019-07-18] MEDS ORDERED: ZOFRAN IV PRN (02:10)
[2019-07-18] MEDS ORDERED: LASIX IV SCH (02:10)
[2019-07-18] MEDS ORDERED: TYLENOL PO PRN (02:10)
[2019-07-18 07:28] LABS: BASO# 0.04 X1000 (0.0-0.2); BASO% 0.6 % (0.0-0.8); EOS# 0.25 X1000 (0.0-0.7); EOS% 3.9 % (0.0-10.0); HEMATOCRIT 47.6 % (42.0-52.0); HEMOGLOBIN 14.7 g/dL (14.0-18.0); IMM GRAN# 0.02 X1000 (0.0-0.04); IMM GRAN% 0.3 % (0.0-0.5); LYMPH# 1.54 X1000 (1.2-3.4); LYMPH% 23.8 % (20.5-51.1); MCH 27.7 PG (27-31); MCHC 30.9 g/dL (33-37); MCV 89.8 FL (81-99); MONO# 0.44 X1000 (0.11-0.59); MONO% 6.8 % (1.7-9.3); MPV 9.2 FL (7.4-10.4); NEUT# 4.18 X1000 (1.4-6.5); NEUT% 64.6 % (42.2-75.2); PLT 259 X1000 (130-400); RDW 15.8 % (11.5-14.5); WBC 6.47 X1000 (4.8-10.8)
[2019-07-18 08:00] LABS: AGAP 11; BUN 14 mg/dL (8-22); CALCIUM 8.3 mg/dL (8.8-10.2); CHLORIDE 99 mmol/L (98-107); COSMO 277; CREATININE 1.1 mg/dL (0.7-1.2); ESTIMATED GFR > 60; GLUCOSE 78 mg/dL (70-104); POTASSIUM 3.6 mmol/L (3.5-5.1); SODIUM 139 mmol/L (136-145); TCO2 29 mmol/L (25-35)
[2019-07-18] MEDS: LASIX IV SCH ×2 (09:41→21:20)
--- NOTE | 2019-07-18 15:02 | CARDIOLOGY CONSULTATION ---
DATE: 07/18/2019 REASON FOR CONSULTATION: Cardiology was consulted for congestive heart failure. HISTORY OF PRESENT ILLNESS: Mr. Ames is a 58-year-old gentleman with history of medical noncompliance, congestive heart failure, severe LV dysfunction, history of atrial fibrillation, noncompliance given financial reasons. The patient states that he has been having increasing shortness of breath, and noticed increasing pedal edema and scrotal edema. He came to the emergency room. He was given Lasix, and symptomatically he is improved. He denies chest pain. He has chronic shortness of breath. He became orthopneic, and also had some paroxysmal nocturnal dyspnea. Denies chest pain. REVIEW OF SYSTEMS: A 14-point review of system was done. GI: There is no history of nausea, vomiting, diarrhea. There is no history of hematemesis or melena. Central Nervous System: No focal weakness to suggest a CVA or TIA. : There is no dysuria or hematuria. PAST MEDICAL HISTORY: 1. Severe nonischemic cardiomyopathy, ejection fraction of 15% to 20% with dilated left ventricle. 2. Nonischemic cardiomyopathy. Previous coronary angiogram in 04/2018 shows normal coronary arteries. 3. Hypertension. 4. History of substance abuse in the past. 5. Previous significant ethanol abuse. 6. Medical noncompliance. CURRENT MEDICATIONS: List has not been reconciled. He says he has only been taking Lasix. SOCIAL HISTORY: He does not smoke at the present time. Does not drink. PHYSICAL EXAMINATION: Vital Signs: Blood pressure was 140/100 when he came. Neck: Jugular venous pressure was elevated. Heart: There was S3 gallops and soft murmurs. Respiratory: Normal air entry. Bibasilar inspiratory crepitations. Abdomen: Soft, nontender. There was no guarding or rigidity. Bowel sounds were heard. Extremities: There was bilateral pitting pedal edema, in addition to scrotal edema. HEENT: Atraumatic. Pupils were equal and reacting to light. IMAGING AND LABORATORY DATA: ProBNP was 2346. Sodium 140, potassium 4.2, BUN 13, creatinine 1.1, glucose 96. WBC 6.78, hemoglobin 14.7, hematocrit 46, platelet count of 235,000. CT scan revealed cardiomegaly with moderate-sized pericardial effusion, moderate right pleural effusion, and ground-glass appearance consistent with edema. No pulmonary embolism. ASSESSMENT AND PLAN: Mr. Fady Ames is a 58-year-old, gentleman with history of congestive heart failure, severe nonischemic cardiomyopathy, atrial fibrillation, hypertension, abnormal electrocardiogram with interventricular conduction delay, left bundle-branch block of 167, who comes with complaints of increasing shortness of breath, scrotal edema, and orthopnea. The patient has been noncompliant with his medications. 1. He has been started on Lasix 40 mg intravenously twice daily. 2. We will restart on the medications he was discharged home on with Coreg 6.25 mg twice daily, losartan 50, and spironolactone 25 mg a day, in addition to aspirin 81 mg a day. 3. Will get a limited echocardiogram to evaluate for the pericardial effusion. Thank you for the consult. Will follow hospital course. cc: José Miguel Li MD
[2019-07-18] MEDS: COREG PO SCH ×2 (15:55→21:19)
[2019-07-18] MEDS: ASPIRIN PO SCH (15:56)
[2019-07-18] MEDS: ALDACTONE PO SCH (15:56)
[2019-07-18] MEDS: COZAAR PO SCH (15:56)
--- NOTE | 2019-07-18 20:24 | Extremity Venous Study ---
PROCEDURE NAME: Venous U/S Bilateral Legs - 07/17/2019 REQUEST PHYSICIAN: Sid Garcia M.D. READING PHYSICIAN: Sukhdeep Liu MD SLICE PLUG CUTTER OPERATOR: Marely. INDICATION: Leg swelling. FINDINGS: The deep and superficial veins of both lower extremities were imaged throughout their course. They are compressible, patent without thrombus. INTERPRETATION: No deep venous thrombosis or superficial venous thrombosis in either lower extremity. cc: Sukhdeep Liu MD
--- NOTE | 2019-07-18 23:54 | ECHO REPORT ---
ORDER DATE: 07/18/2019 SUMMARY: 1. Limited study performed with 2-dimensional echocardiography only. 2. Aortic valve is without evidence of structural abnormality and appears to open adequately on 2- dimensional images. Mitral and tricuspid valves are without evidence of structural abnormality. Pulmonic valves not well demonstrated. The aortic root is normal size. 3. Moderate left ventricular enlargement with normal wall thickness demonstrated. Estimated left ejection fraction approximately 25% in the setting of severe global hypokinesis. There is also paradoxical septal motion probably related to interventricular conduction abnormality. Moderate to severe biatrial enlargement is demonstrated. The right ventricle is moderately enlarged with reduced right ventricular systolic function. 4. Small posterior pericardial effusion is demonstrated without echocardiographic evidence of hemodynamic impact. 5. Appearance of inferior vena cava suggests significantly elevated central venous pressure. cc: MD Rolanda Jackson PA
[2019-07-19] MEDS: ALDACTONE PO SCH (08:09)
[2019-07-19] MEDS: COZAAR PO SCH (08:09)
[2019-07-19] MEDS: COREG PO SCH ×2 (08:09→20:08)
[2019-07-19] MEDS: ASPIRIN PO SCH (08:09)
[2019-07-19 08:14] LABS: AGAP 13; ALB/GLOB RATIO 0.8; ALKALINE PHOSPHATASE 75 U/L (32-122); BUN 17 mg/dL (8-22); CALCIUM 8.5 mg/dL (8.8-10.2); CHLORIDE 102 mmol/L (98-107); COSMO 286; CREATININE 1.2 mg/dL (0.7-1.2); ESTIMATED GFR > 60; GLUCOSE 89 mg/dL (70-104); GOT 65 U/L (10-34); GPT 39 U/L (10-44); POTASSIUM 4.2 mmol/L (3.5-5.1); SODIUM 143 mmol/L (136-145); TCO2 28 mmol/L (25-35); TOTAL BILIRUBIN 1.87 mg/dL (0.20-1.00); TOTAL PROTEIN 6.6 g/dL (6.3-8.3)
[2019-07-19 08:24] LABS: MAGNESIUM 1.9 mg/dL (1.5-2.7); PHOSPHORUS 3.4 mg/dL (2.7-4.5)
--- NOTE | 2019-07-19 15:02 | PROGRESS NOTE ---
DATE: 07/19/2019 SUBJECTIVE: The patient is still complaining of some shortness of breath today even though his oxygen saturation has been stable. He has some fluid overload including his scrotal area that seems to be edematous and tender to palpation. No signs of infection though. Cardiology Department on board. OBJECTIVE: Vital Signs: Temperature 98.2 degrees, pulse 73, respiratory rate 18, blood pressure 134/93, and oxygen saturation 95% on room air. HEENT: Head normocephalic. No trauma. PERRLA. Neck: Supple. No JVD. No masses. Central trachea. Chest: Decreased breath sounds at the bases with some crackles. Abdomen: Soft, nontender, and nondistended. No hepatosplenomegaly. Abdominal wall edema. Extremities: 2+ lower extremity edema. No clubbing. No cyanosis. Inguinal area/scrotal area is edematous and tenderness to palpation. Neurological: Patient is awake and alert. He is oriented. LABORATORY: Sodium 143, potassium 4.2, chloride 102, bicarbonate 28, BUN 17, creatinine 1.2, glucose 89, calcium 8.5, magnesium 1.9, AST 65, ALT 39, and alkaline phosphatase 75. ASSESSMENT AND PLAN: 1. Acute CHF exacerbation with low ejection fraction which is around 25% with global hypokinesis. Continue with diuretics twice a day. Cardiology Department on board. 2. Chronic atrial fibrillation. Continue with same management. He has been placed on carvedilol. He has been refusing to take anticoagulation. 3. Hypertension. Continue with same management. Stable. 4. Obesity with a body mass index of 32.5. Aware. 5. History of severe nonischemic cardiomyopathy. Aware. 6. Sleep apnea. Aware. Overall, this patient is feeling about the same compared to yesterday. He is still overloaded. He complains of shortness of breath even though his oxygen saturation has been stable. His scrotal area is edematous. Continue with Lasix twice a day. The patient has been refusing anticoagulation. Also, we have suggested to place an AICD, but he also refused that. cc: Marc Mandujano MD
[2019-07-19] MEDS: LASIX IV SCH ×2 (20:08→23:36)
[2019-07-20] MEDS: SYNTHROID PO SCH (06:31)
[2019-07-20 07:58] LABS: AGAP 10; ALBUMIN 3.4 g/dL (3.5-5.0); ALKALINE PHOSPHATASE 82 U/L (32-122); BUN 19 mg/dL (8-22); CALCIUM 8.8 mg/dL (8.8-10.2); CHLORIDE 99 mmol/L (98-107); COSMO 281; CREATININE 1.2 mg/dL (0.7-1.2); ESTIMATED GFR > 60; GLUCOSE 91 mg/dL (70-104); GOT 62 U/L (10-34); GPT 35 U/L (10-44); SODIUM 140 mmol/L (136-145); TCO2 31 mmol/L (25-35); TOTAL BILIRUBIN 1.69 mg/dL (0.20-1.00); TOTAL PROTEIN 6.7 g/dL (6.3-8.3)
[2019-07-20] MEDS: ASPIRIN PO SCH (08:32)
[2019-07-20] MEDS: COZAAR PO SCH (08:32)
[2019-07-20] MEDS: COREG PO SCH ×2 (08:32→22:01)
[2019-07-20] MEDS: LASIX IV SCH ×2 (08:32→22:01)
[2019-07-20] MEDS: ALDACTONE PO SCH (08:32)
--- NOTE | 2019-07-20 15:50 | PROGRESS NOTE ---
DATE: 07/20/2019 SUBJECTIVE: I have seen and examined Mr. Ames. Today Mr. Ames refers to be doing well. He is still concerned about the lower extremity swelling and the scrotal swelling. OBJECTIVELY: Current vitals: Blood pressure 119/86, pulse of 68, respiration is 19, temperature 97.4 degrees. General: Mr. Ames is a 58-year-old gentleman. He was sitting at the edge of the bed, no distress. HEENT: Mucosa is pink and moist. Anicteric. Acyanotic. Neck: Supple. There is positive JVD. Chest: Good air entry bilaterally. Few crackles in the posterior lung rico. Cardiovascular: Regular rate and rhythm. I did not hear any murmurs. Extremities: About 2+ pedal edema. The patient also has remarkable scrotal swelling. DENTAL ASSISTANT INSTRUCTOR: Patient is awake, alert, and oriented. LABORATORY DATA: Have all been reviewed, unremarkable except for mild elevation in the AST. MEDICATIONS: Have all been reviewed and no changes. ASSESSMENT: 1. Fluid overload secondary to congestive heart failure with ejection fraction of 25% associated with global hypokinesis. The patient is on diuretic therapy. 2. Chronic atrial fibrillation, currently rate controlled on carvedilol. 3. Hypertension. 4. Severe nonischemic cardiomyopathy. 5. Obstructive sleep apnea. 6. Elevated liver enzymes, presumably from congestive hepatopathy. 7. History of hepatitis C. 8. Pulmonary edema with pleural effusions secondary to congestive heart failure exacerbation. In general, I think Mr. Ames is fairly stable. We will continue with the diuretic therapy and all his other medications and will follow up with further recommendations as well from Cardiology. cc: Brian Sanders MD
[2019-07-21] MEDS: SYNTHROID PO SCH (06:22)
[2019-07-21 07:19] LABS: AGAP 10; BUN 23 mg/dL (8-22); CHLORIDE 100 mmol/L (98-107); COSMO 286; CREATININE 1.2 mg/dL (0.7-1.2); ESTIMATED GFR > 60; GLUCOSE 89 mg/dL (70-104); POTASSIUM 4.2 mmol/L (3.5-5.1); SODIUM 142 mmol/L (136-145); TCO2 32 mmol/L (25-35)
[2019-07-21] MEDS: ALDACTONE PO SCH (08:38)
[2019-07-21] MEDS: COREG PO SCH ×2 (08:38→23:02)
[2019-07-21] MEDS: LASIX IV SCH ×2 (08:38→23:02)
[2019-07-21] MEDS: ASPIRIN PO SCH (08:38)
[2019-07-21] MEDS: COZAAR PO SCH (08:38)
--- NOTE | 2019-07-21 14:10 | PROGRESS NOTE ---
DATE: 07/21/2019 SUBJECTIVE: I have seen and examined Mr. Ames this morning. Mr. Ames refers to be doing well. He said he has been going very often to use the restroom. OBJECTIVE: Vital signs: Blood pressure 103/86, pulse of 60, respirations 18, temperature 97.5 degrees, patient is saturating 96%. General: Mr. Ames is a 58-year-old gentleman. He was sitting at the edge of the bed. He was not in any cardiopulmonary distress. HEENT: Mucosa is pink and moist. Anicteric. Acyanotic. Neck: Supple. Mild JVD is noted. Chest: Good air entry bilateral. There are still a few crackles posteriorly. Cardiovascular: Regular rate and rhythm. No murmurs, no rubs, no gallops. Extremities: About 1+ pedal edema. There is also edema in the scrotal and the penis, but they look remarkably improving. Central nervous system: Patient is awake, alert, oriented. No focal deficit. INTAKE AND OUTPUT: Urine output was 5325. He is currently [id number] negative balance. MEDICATIONS: Have also been reviewed. No changes at this point. The patient's weight not checked since the . ASSESSMENT: 1. Fluid overload secondary to congestive heart failure. 2. Severe nonischemic cardiomyopathy, ejection fraction of 25%, associated with global hypokinesis. 3. Chronic atrial fibrillation, currently rate controlled. 4. Obstructive sleep apnea. 5. Elevated liver enzymes secondary to congestive hepatopathy. 6. History of hepatitis C. 7. Pulmonary edema with pleural effusion on admission secondary to congestive heart failure exacerbation. PLAN: In general, I think Mr. Ames is doing better. We are going to continue with the diuretic therapy. He is also on Coreg, Cozaar and spironolactone. He still slightly congested in the lower extremity and the scrotum. We will continue with the current regimen and follow up with further recommendations from Cardiology. cc: Brian Sanders MD
--- NOTE | 2019-07-21 14:26 | CARDIOLOGY PROGRESS NOTE ---
DATE: 07/21/2019 SUBJECTIVE: Mr. Ames reports that he is doing better. He reports improvement in his lower extremity edema. He has no orthopnea. PHYSICAL EXAMINATION: Vital signs: Afebrile. Heart rate 68, blood pressure 103/89. His I's and O's are limited in their accuracy given that he has virtually no intake recorded during the hospitalization. General: No acute distress. Cardiovascular: He sounds to be in a regular rate and rhythm. He has no murmurs. He has no S3. He has trace bilateral lower extremity edema and warm and well-perfused extremities. Chest: Exam sounds clear bilaterally. He has no increased work of breathing. Abdomen: His abdomen is soft, nontender. PERTINENT DATA: His BUN and creatinine are 23 and 1.2 respectively. ASSESSMENT: Mr. Ames is a 58-year-old gentleman with a nonischemic cardiomyopathy. PLAN: He seems to have diuresed a significant amount during the course of the hospitalization. His initial proBNP was 2346. We do not have a repeat. I will recheck labs in the morning. His medicines sound to be titrated based on his hemodynamics. cc: Lowell Amaya MD
[2019-07-22] MEDS: SYNTHROID PO SCH (06:31)
[2019-07-22 07:31] LABS: AGAP 8; BUN 24 mg/dL (8-22); CALCIUM 8.7 mg/dL (8.8-10.2); CHLORIDE 101 mmol/L (98-107); COSMO 277; CREATININE 1.1 mg/dL (0.7-1.2); ESTIMATED GFR > 60; GLUCOSE 84 mg/dL (70-104); MAGNESIUM 1.8 mg/dL (1.5-2.7); SODIUM 137 mmol/L (136-145); TCO2 28 mmol/L (25-35)
[2019-07-22] MEDS: ALDACTONE PO SCH (11:31)
[2019-07-22] MEDS: COZAAR PO SCH (11:32)
[2019-07-22] MEDS: ASPIRIN PO SCH (11:33)
[2019-07-22] MEDS: COREG PO SCH ×2 (11:36→22:00)
[2019-07-22] MEDS: LASIX PO SCH ×2 (11:39→22:00)
[2019-07-22] MEDS ORDERED: MAGNESIUM SULFATE 2 GM/S.W.I. 2 GM/50 ML IVPB IV ONE (12:33)
--- NOTE | 2019-07-22 13:27 | CARDIOLOGY PROGRESS NOTE ---
DATE: 07/22/2019 SUBJECTIVE: Mr. Ames reports he is doing better. He has less scrotal edema. Breathing has improved. PHYSICAL EXAMINATION: Vital Signs: Afebrile. Heart rate 75, blood pressure 148/108. His I's and O's continue to be negative overall, although he has limited oral intake recorded. General: No acute distress. Cardiovascular: He sounds to be in a regular rate and rhythm. I do not hear any obvious murmurs. He has no S3. He has 1+ lower extremity edema. Continued scrotal edema is noted. Chest: Clear bilaterally. No increased work of breathing. Abdomen: Soft, nontender. PERTINENT DATA: Sodium is 137, potassium 4.0, BUN 24, creatinine is 1.1. ProBNP is 1418, this is down from 2346. ASSESSMENT: Mr. Ames is a 58-year-old male with nonischemic cardiomyopathy. PLAN: We have continued to diurese the patient. I have stopped his losartan and placed him on Entresto . We have repleted his magnesium to try to keep it above 2. I will reorder laboratories for the morning. I believe he is approaching discharge time. Dr. Li will be back to follow the patient tomorrow. cc: Lowell Amaya MD
--- NOTE | 2019-07-22 13:44 | PROGRESS NOTE ---
DATE: 07/22/2019 SUBJECTIVE: I have seen and examined Mr. Ames this morning. He refers to be doing well. He said his swelling is remarkably improving. OBJECTIVE: Vital signs: Blood pressure 148/108, pulse of 75, respirations 18, temperature is 98 degrees. General: Mr. Ames is a 58-year-old gentleman. He is in bed. No distress. HEENT: Mucosa is pink and moist. Anicteric. Acyanotic. Neck: Supple. Did not appreciate any JVD this morning. Respiratory: Good air entry bilaterally. No crepitations. No rhonchi. Cardiovascular: Regular rate and rhythm. I did not hear any murmurs. Extremities: Trace pedal edema. Genitourinary: Scrotal edema is also getting better. CRITICAL CARE RN: Patient is awake, alert, and oriented. I'S AND O'S: Urine output was 3200. He is currently negative balance of over 15,000. LABORATORY DATA: Laboratory data has been reviewed. Chemistry is unremarkable. ProBNP is down to 1418 from over 2000 on admission. No recent imaging studies. ASSESSMENT: 1. Fluid overload on admission secondary to congestive heart failure exacerbation. Patient is near euvolemic status. I have changed his IV diuretics to p.o. 2. Severe nonischemic cardiomyopathy, ejection fraction of 25% associated with global hypokinesis noted. 3. Chronic atrial fibrillation. Currently rate controlled on beta blockade. 4. Obstructive sleep apnea. 5. Elevated liver enzymes on admission, presumably from congestive hepatopathy, improved. 6. History of a hepatitis C. 7. Pulmonary edema with pleural effusion on admission secondary to congestive heart failure, improved. We will follow up with a repeat chest x-ray tomorrow morning. In general, I think Mr. Ames is doing a lot better. ProBNP is trending down. Congestive symptoms have remarkably improved. I have changed his IV diuretic therapy to p.o. He has been switched to Entresto by Cardiology today. I believe by tomorrow we could potentially discharge him. cc: Brian Sanders MD
--- NOTE | 2019-07-23 06:45 | Diag Imaging Result Doc PS360 ---
EXAM: CHEST-1 VIEW 07/23/2019 HISTORY: CHF TECHNIQUE: AP portable at 0606 COMMENT: There is cardiomegaly. There is mild interstitial pulmonary edema. Compared to 07/17/2019 the interstitial edema slightly worse however the right base is slightly clearer. IMPRESSION: Cardiomegaly and pulmonary edema. Electronically signed by Fady Leon 07/23/2019 6:43 AM
[2019-07-23] MEDS: SYNTHROID PO SCH (07:26)
[2019-07-23] MEDS: ASPIRIN PO SCH (08:03)
[2019-07-23] MEDS: LASIX PO SCH (08:03)
[2019-07-23] MEDS: ALDACTONE PO SCH (08:03)
[2019-07-23] MEDS: COREG PO SCH (08:03)
[2019-07-23 08:11] LABS: CALCIUM 8.9 mg/dL (8.8-10.2); CREATININE 1.3 mg/dL (0.7-1.2); POTASSIUM 4.1 mmol/L (3.5-5.1)
[2019-07-23] MEDS ORDERED: ENTRESTO 24 MG-26 MG TABLET PO SCH (09:00)
[2019-07-23] MEDS ORDERED: LASIX PO SCH (09:00)
[2019-07-23 13:09] VITALS: BP 112/90
--- NOTE | 2019-07-24 05:55 | DISCHARGE SUMMARY ---
ADMISSION DATE: 07/18/2019 DISCHARGE DATE: 07/23/2019 DISPOSITION: Home. FOLLOWUP: Dr. Li. CONSULTATION DURING THIS ADMISSION: Cardiology was consulted. Patient was seen by Dr. Li and followed up by Dr. Lowell Amaya. INVASIVE PROCEDURES DONE DURING ADMISSION: None. IMAGING STUDIES OF SIGNIFICANCE: A chest x-ray showed cardiomegaly with pulmonary edema. CTA of the lungs showed cardiomegaly and moderate-sized pericardial effusion that is essentially stable. There was also moderate sized right pleural effusion. Ground-glass opacity in the right lower lobe at the base consistent with edema. There was ascites tracking around the liver and spleen. ADMISSION DIAGNOSES: 1. Acute congestive heart failure. 2. Chronic atrial fibrillation. 3. Hypertension. 4. Obesity. DISCHARGE DIAGNOSES: 1. Fluid overload on admission secondary to congestive heart failure exacerbation. 2. Severe nonischemic cardiomyopathy and ejection fraction of 25% associated with global hypokinesis. 3. Chronic atrial fibrillation, currently rate controlled. 4. Obstructive sleep apnea. 5. Elevated liver enzymes on admission secondary to congestive hepatopathy on the background of hepatitis C. 6. Pulmonary edema with pleural effusion on admission secondary to congestive heart failure improved. 7. Acute kidney injury presumably from over-diuresis, diuretic dose was changed. DISCHARGE MEDICATIONS: 1. Levothyroxine 25 mcg p.o. daily. 2. Carvedilol 12.5 b.i.d. 3. Aspirin 81 mg p.o. daily. 4. Spironolactone 25 mg p.o. daily. 5. Furosemide 40 mg p.o. daily. 6. Entresto 24/26 mg b.i.d. PRESENTING COMPLAINT: Shortness of breath, scrotal swelling, and lower extremity swelling for 1 week. HISTORY OF PRESENTING COMPLAINT: Mr. Ames is a 58-year-old gentleman with a history of chronic atrial fibrillation, and severe nonischemic cardiomyopathy, who came in with a history of shortness of breath, lower extremity edema, and was found to be in congestive symptoms with pulmonary edema and lower extremity swelling. He was admitted to the medical floor for management. HOSPITAL COURSE: Mr. Ames was started on IV diuretics, which he responded well. Throughout the hospital course, he became negative balance of 15,755 at the time of his discharge. His congestive symptoms resolved. Scrotal swelling improved remarkably. Mr. Ames was also consulted with Cardiology who made some changes to his medications. He responded well, and he started feeling better. His creatinine at the day of the discharge has bumped up slightly to 1.2, which his IV diuretics has been changed to p.o. He has been advised to repeat his BMP within a week to follow up with Cardiology. This morning Mr. Ames referred to be feeling a whole lot better. Vitals: Blood pressure is 112/90, pulse of 63, respirations 18, and temperature 98.2 degrees. The patient is saturating 98% on room air. His weight has gone from 240 on admission to 223 so he lost about 7 pounds during the hospital course. He is currently asymptomatic. We think he is stable to be discharged to follow up with Cardiology. We have advised Mr. Ames on dietary modifications especially low- salt. We have also advised him on medication compliance. Social Work has been consulted for medication assist. Mr. Ames is advised to repeat a BMP to check on his renal function test within a week and follow up with Cardiology. All the discharge instructions have been discussed with him. He voiced understanding. TIME SPENT FOR DISCHARGE: 35 minutes. cc: Brian Sanders MD
== END 2019-07-23 17:23 | disposition home or self-care (01) | DRG 292 ==
LOC: ED 16:19 → 3N 07-18 01:26 → SUATTDRO 07-18 01:26
PROVIDERS: ATTEND Internal Medicine